=== PATIENT | female | born 1945 | race Caucasian/White ===

== ENCOUNTER → 2018-03-10 12:03 | Outpatient (CLI) | payer MEDICARE, OTHER, SELFPAY ==
[2018-03-10 12:08] LABS: Bacteria Urine None Seen
[2018-03-10 12:41] LABS: Appearance Urine UA CLOUDY; Bilirubin Urine UA NEGATIVE (NEGATIVE); Color Urine UA ORANGE; Glucose Urine UA TRACE g/dL (Normal); Ketones Urine UA TRACE (NEGATIVE); Leukocyte Esterase Urine UA 2+ (NEGATIVE); Nitrite Urine UA POSITIVE (Negative); Occult Blood Urine UA 3+ (Negative); Protein Urine UA 3+ (Negative); Specific Gravity Urine UA 1.015 (1.000-1.035)
[2018-03-10 13:40] LABS: Culture Indicated Urine Specimen Cultured; RBC Urine 10-30/HPF (0-5/HPF); WBC Urine 5-10/HPF (0-5/HPF)
== END ==
PROVIDERS: PCP Urology; Visit Provider Family Medicine
DX: R30.0 Dysuria (principal)
CPT/HCPCS: 81001; 87077; 87086; 87186

== ENCOUNTER → 2018-06-22 11:52 | Outpatient (CLI) | payer MEDICARE, OTHER, SELFPAY ==
[2018-06-22 12:56] LABS: Add Manual Diff / Slide Review NO; Basophils Percent Auto 0.7 % (0-2); Eosinophils Percent Auto 1.5 % (2-4); Hematocrit 37.3 % (36-46); Hemoglobin 12.4 g/dL (12.0-16.0); Lymphocytes Percent Auto 26.8 % (25-40); Mean Corpuscular HGB Conc 33.4 % (30-36); Mean Corpuscular Hemoglobin 31.7 PG (26-34); Monocytes Percent Auto 10.2 % (3-14); Neutrophils Absolute Auto 3100 /uL (3000-5900); Neutrophils Percent Auto 60.8 % (50-75); Platelet Count 238 X10^3/uL (150-400); Red Blood Cell Count 3.93 X10^6/uL (4.0-5.2); Red Cell Distribution Width 12.9 % (11.6-14.8); White Blood Cell Count 5.1 X10^3/uL (4.5-11.0)
[2018-06-22 13:02] LABS: Alanine Aminotransferase 33 IU/L (9-52); Albumin 4.6 g/dL (3.5-5.0); Alkaline Phosphatase 60 U/L (38-126); Aspartate Aminotransferase 47 IU/L (14-36); BUN Creatinine Ratio 15.7 (6-22); Bilirubin Total 0.7 mg/dL (0.2-1.3); Blood Urea Nitrogen 11 mg/dL (7-17); Calcium 9.1 mg/dL (8.4-10.2); Carbon Dioxide 30 mmol/L (22-32); Chloride 97 mmol/L (98-107); Cholesterol 155 mg/dL (140-199); Estimated Glomerular Filt Rate > 60.0 mL/min (>60); Globulin 2.3 g/dL (1.7-4.1); Glucose 96 mg/dL (80-110); HDL Cholesterol 62 mg/dL (40-60); HEMOLYSIS < 15 (0-50); LDL Cholesterol Calculated 79 mg/dL (<100); Potassium 3.8 mmol/L (3.4-5.1); Sodium 142 mmol/L (137-145); Total Protein 6.9 g/dL (6.3-8.2); Triglycerides 71 mg/dL (35-150)
[2018-06-22 13:32] LABS: Thyroid Stimulating Hormone 1.69 uIU/mL (0.47-4.68)
== END ==
PROVIDERS: PCP Urology; Visit Provider Family Medicine
DX: E78.5 Hyperlipidemia, unspecified (principal); I10 Essential (primary) hypertension; I47.1 Supraventricular tachycardia
CPT/HCPCS: 36415; 80053; 80061; 84443; 85025

== ENCOUNTER → 2018-06-27 16:31 | Outpatient (CLI) | payer MEDICARE, OTHER, SELFPAY | PROVIDERS: PCP Urology; Visit Provider Family Medicine | DX: Z12.11 Encounter for screening for malignant neoplasm of colon (principal) ==

== ENCOUNTER → 2018-07-17 12:36 | Outpatient (CLI) | payer MEDICARE, OTHER, SELFPAY | PROVIDERS: PCP Family Medicine; Visit Provider Family Medicine | DX: M81.0 Age-related osteoporosis without current pathological fracture (principal); Z78.0 Asymptomatic menopausal state; Z87.891 Personal history of nicotine dependence | CPT/HCPCS: 77080 ==

== ENCOUNTER → 2018-07-18 13:51 | Outpatient (CLI) | payer MEDICARE, OTHER, SELFPAY ==
[2018-07-20 18:22] LABS: Fecal Immunochemical Test NOT DETECTED
== END ==
PROVIDERS: PCP Family Medicine; Visit Provider Family Medicine
DX: E78.5 Hyperlipidemia, unspecified (principal); I10 Essential (primary) hypertension; I47.1 Supraventricular tachycardia
CPT/HCPCS: 82274

== ENCOUNTER → 2018-07-24 11:01 | Outpatient (CLI) | payer MEDICARE, OTHER, SELFPAY ==
--- NOTE | 2018-07-24 11:04 | DI.MG.S_ITS ---
BILATERAL DIGITAL SCREENING MAMMOGRAM 3D/2D WITH CAD: 07/24/2018 CLINICAL: Routine screening. Comparison is made to exams dated: 04/20/2010 mammogram - [facility], 07/03/2007 mammogram, and 09/01/2005 mammogram - [facility]. The tissue of both breasts is heterogeneously dense. This may lower the sensitivity of mammography. Current study was also evaluated with a Computer Aided Detection (CAD) system. No significant masses, calcifications, or other findings are seen in either breast. There has been no significant interval change. IMPRESSION: NEGATIVE There is no mammographic evidence of malignancy. A 1 year screening mammogram is recommended. This exam was interpreted at Station ID: [id number]. NOTE: For mammograms, a report in lay terms will be sent to the patient. Approximately 15% of breast malignancies will not be visualized mammographically. In the management of a palpable breast mass, a negative mammogram must not discourage biopsy of a clinically suspicious lesion. Electronically Signed By: Mazin ayala/trell:07/24/2018 12:14:21 letter sent: Normal Exam ACR BI-RADS Category 1: Negative [id number]
== END ==
PROVIDERS: PCP Family Medicine; Visit Provider Family Medicine
DX: Z12.31 Encounter for screening mammogram for malignant neoplasm of breast (principal)
CPT/HCPCS: 77063; 77067

== ENCOUNTER → 2019-01-23 15:24 | Outpatient (CLI) | payer MEDICARE, OTHER, SELFPAY ==
[2019-01-23 15:35] LABS: Bacteria Urine None Seen
[2019-01-23 15:45] LABS: Appearance Urine UA CLEAR; Bilirubin Urine UA NEGATIVE (NEGATIVE); Color Urine UA YELLOW; Glucose Urine UA NEGATIVE (Negative); Ketones Urine UA NEGATIVE (NEGATIVE); Leukocyte Esterase Urine UA TRACE (NEGATIVE); Nitrite Urine UA NEGATIVE (Negative); Occult Blood Urine UA 2+ (Negative); Protein Urine UA NEGATIVE (Negative); Specific Gravity Urine UA 1.015 (1.000-1.035); Urobilinogen Urine UA 0.2 E.U./dL (0.2); pH Urine UA 7.5 (4.5-8.0)
[2019-01-23 16:12] LABS: Amorphous Sediment Urine 1+; Culture Indicated Urine Specimen Cultured; RBC Urine 1-5/HPF (0-5/HPF); Squamous Epithelial Cell Urine 0-1 /HPF (0-5/HPF); WBC Urine 1-5/HPF (0-5/HPF)
== END ==
PROVIDERS: Family Provider Family Medicine; PCP Family Medicine; Visit Provider Family Medicine
DX: R30.0 Dysuria (principal)
CPT/HCPCS: 81001; 87077; 87086; 87186

== ENCOUNTER → 2019-02-05 14:23 | Outpatient (CLI) | payer MEDICARE, OTHER, SELFPAY ==
[2019-02-05 15:31] LABS: Appearance Urine UA CLEAR; Bilirubin Urine UA NEGATIVE (NEGATIVE); Color Urine UA YELLOW; Glucose Urine UA NEGATIVE (Negative); Ketones Urine UA NEGATIVE (NEGATIVE); Leukocyte Esterase Urine UA 3+ (NEGATIVE); Nitrite Urine UA NEGATIVE (Negative); Occult Blood Urine UA 2+ (Negative); Protein Urine UA NEGATIVE (Negative); Urobilinogen Urine UA 0.2 E.U./dL (0.2)
[2019-02-05 15:42] LABS: Amorphous Sediment Urine 1+; Bacteria Urine Moderate (10-30); Culture Indicated Urine Specimen Cultured; Mucus Urine 1+ (Negative); RBC Urine 1-5/HPF (0-5/HPF); Squamous Epithelial Cell Urine 0-1 /HPF (0-5/HPF); WBC Urine 30-100/HPF (0-5/HPF)
== END ==
PROVIDERS: Family Provider Family Medicine; PCP Family Medicine; Visit Provider Family Medicine
DX: R30.9 Painful micturition, unspecified (principal)
CPT/HCPCS: 81001; 87077; 87086; 87186

== ENCOUNTER → 2019-03-09 10:43 | Outpatient (CLI) | payer MEDICARE, OTHER, SELFPAY ==
[2019-03-09 11:07] LABS: Bacteria Urine None Seen
[2019-03-09 11:49] LABS: Appearance Urine UA CLOUDY; Bilirubin Urine UA 1+ (NEGATIVE); Color Urine UA Red; Glucose Urine UA NEGATIVE (Negative); Ictotest Urine Negative (Negative); Ketones Urine UA TRACE (NEGATIVE); Leukocyte Esterase Urine UA 2+ (NEGATIVE); Nitrite Urine UA NEGATIVE (Negative); Occult Blood Urine UA 3+ (Negative); Protein Urine UA 2+ (Negative); pH Urine UA 6.5 (4.5-8.0)
[2019-03-09 11:50] LABS: Culture Indicated Urine Specimen Cultured; RBC Urine >100/HPF (0-5/HPF); Squamous Epithelial Cell Urine 1-5 /HPF (0-5/HPF); WBC Urine >100/HPF (0-5/HPF)
== END ==
PROVIDERS: PCP Family Medicine; Visit Provider Family Medicine
DX: N39.0 Urinary tract infection, site not specified (principal)
CPT/HCPCS: 81001; 87077; 87086; 87186

== ENCOUNTER → 2019-03-25 14:38 | Outpatient (CLI) | payer MEDICARE, OTHER, SELFPAY ==
[2019-03-25 14:44] LABS: Bacteria Urine None Seen
[2019-03-25 14:56] LABS: Appearance Urine UA CLEAR; Bilirubin Urine UA NEGATIVE (NEGATIVE); Color Urine UA ORANGE; Glucose Urine UA TRACE g/dL (Negative); Ketones Urine UA NEGATIVE (NEGATIVE); Leukocyte Esterase Urine UA 1+ (NEGATIVE); Nitrite Urine UA POSITIVE (Negative); Occult Blood Urine UA 3+ (Negative); Protein Urine UA 1+ (Negative); pH Urine UA 7.5 (4.5-8.0)
[2019-03-25 15:11] LABS: Culture Indicated Urine Specimen Cultured; RBC Urine 5-10/HPF (0-5/HPF); WBC Urine 5-10/HPF (0-5/HPF)
== END ==
PROVIDERS: PCP Family Medicine; Visit Provider Family Medicine
DX: N39.0 Urinary tract infection, site not specified (principal); R30.0 Dysuria
CPT/HCPCS: 81001; 87086

== ENCOUNTER → 2019-04-19 15:28 | Outpatient (CLI) | payer MEDICARE, OTHER, SELFPAY ==
[2019-04-19 16:10] LABS: Sodium 138 mmol/L (137-145)
[2019-04-19 16:13] LABS: BUN Creatinine Ratio 26.7 (6-22); Blood Urea Nitrogen 16 mg/dL (7-17); Calcium 9.7 mg/dL (8.4-10.2); Carbon Dioxide 29 mmol/L (22-32); Chloride 97 mmol/L (98-107); Estimated Glomerular Filt Rate > 60.0 mL/min (>60); Glucose 78 mg/dL (80-110); HEMOLYSIS < 15 (0-50); Potassium 4.1 mmol/L (3.4-5.1)
[2019-04-19 16:52] LABS: Vitamin D 25 Hydroxy (D3) 53.8 ng/mL (30.0-100.0)
== END ==
PROVIDERS: PCP Family Medicine; Visit Provider Internal Medicine Endocrinology, Diabetes & Metabolism
DX: M81.0 Age-related osteoporosis without current pathological fracture (principal)
CPT/HCPCS: 36415; 80048; 82306

== ENCOUNTER → 2019-04-20 11:15 | Outpatient (CLI) | payer MEDICARE, OTHER, SELFPAY | PROVIDERS: PCP Family Medicine; Visit Provider Internal Medicine Endocrinology, Diabetes & Metabolism | DX: M81.0 Age-related osteoporosis without current pathological fracture (principal) | CPT/HCPCS: 82523; 82570 ==

== ENCOUNTER → 2019-07-26 15:27 | Outpatient (CLI) | payer MEDICARE, OTHER, SELFPAY ==
[2019-07-26 15:34] LABS: Bacteria Urine None Seen
[2019-07-26 16:13] LABS: Appearance Urine UA CLEAR; Bilirubin Urine UA NEGATIVE (NEGATIVE); Color Urine UA YELLOW; Glucose Urine UA NEGATIVE (Negative); Ketones Urine UA NEGATIVE (NEGATIVE); Leukocyte Esterase Urine UA 1+ (NEGATIVE); Nitrite Urine UA NEGATIVE (Negative); Occult Blood Urine UA 1+ (Negative); Protein Urine UA NEGATIVE (Negative); Urobilinogen Urine UA 0.2 E.U./dL (0.2)
[2019-07-26 16:24] LABS: RBC Urine 5-10/HPF (0-5/HPF); WBC Urine 5-10/HPF (0-5/HPF)
[2019-07-26 16:25] LABS: Culture Indicated Urine Specimen Cultured
== END ==
PROVIDERS: PCP Family Medicine; Visit Provider Family Medicine
DX: N39.0 Urinary tract infection, site not specified (principal)
CPT/HCPCS: 81001; 87077; 87086; 87186

== ENCOUNTER → 2019-09-16 14:58 | Outpatient (CLI) | payer MEDICARE, OTHER, SELFPAY ==
[2019-09-16 16:28] LABS: BUN Creatinine Ratio 22.9 (6-22); Blood Urea Nitrogen 16 mg/dL (7-17); Calcium 9.3 mg/dL (8.4-10.2); Carbon Dioxide 30 mmol/L (22-32); Chloride 97 mmol/L (98-107); Estimated Glomerular Filt Rate > 60.0 mL/min (>60); Glucose 85 mg/dL (80-110); HEMOLYSIS < 15 (0-50); Sodium 136 mmol/L (137-145)
[2019-09-16 17:15] LABS: Vitamin D 25 Hydroxy (D3) 36.3 ng/mL (30.0-100.0)
== END ==
PROVIDERS: Visit Provider Internal Medicine Endocrinology, Diabetes & Metabolism
DX: M81.0 Age-related osteoporosis without current pathological fracture (principal)
CPT/HCPCS: 80048; 82306; 82523; 82570

== ENCOUNTER → 2020-05-13 14:02 | Outpatient (CLI) | payer MEDICARE, OTHER, SELFPAY ==
--- NOTE | 2020-05-13 14:09 | DI.RAD.S_ITS ---
PROCEDURE: XR HAND LT MIN 3V INDICATIONS: hand pain TECHNIQUE: 3 views of the hand(s) acquired. COMPARISON: None. FINDINGS: Bones: No fractures or dislocations. Moderate to severe scattered IP and 1st CMC degenerative narrowing are present most severe in the DIP joints 3 through 5. Areas of periarticular sclerosis are present. Scattered minimal periarticular lucencies are noted. Soft tissues: No suspicious soft tissue calcifications. IMPRESSION: Prominent DIP and 1st CMC arthritic narrowing with subchondral lucencies. The latter are most likely suspicious for subchondral cyst. However, in appropriate clinical and laboratory sending, erosions cannot be excluded. Dictated by: Lovely Webster M.D. on 05/13/2020 at 16:25 Approved by: Lovely Webster M.D. on 05/13/2020 at 16:26
--- NOTE | 2020-05-13 14:09 | DI.RAD.S_ITS ---
PROCEDURE: XR HAND RT MIN 3V INDICATIONS: hand pain TECHNIQUE: 3 views of the hand(s) acquired. COMPARISON: None. FINDINGS: Bones: No fractures or dislocations. There is mild to moderate 1st CMC as well as moderate DIP IP degenerative narrowing. It is most significant in the 4th and 5th DIP joints. Scattered areas of periarticular subchondral lucency are present. Minimal periarticular osteophytes most notable at the 5th DIP joint. Soft tissues: No suspicious soft tissue calcifications. IMPRESSION: 1st CMC as well as DIP joint space narrowing as above most consistent with arthritis. Subchondral lucencies are present which suspected to represent cyst. However, in appropriate clinical and laboratory setting, erosions cannot be excluded. Dictated by: Lovely Webster M.D. on 05/13/2020 at 16:26 Approved by: Lovely Webster M.D. on 05/13/2020 at 16:27
[2020-05-13 14:43] LABS: Add Manual Diff / Slide Review NO; Basophils Absolute Auto 0 /uL (0-100); Basophils Percent Auto 0.7 % (0-2); Eosinophils Absolute Auto 0 /uL (0-450); Eosinophils Percent Auto 0.5 % (2-4); Hematocrit 35.1 % (36-46); Hemoglobin 11.8 g/dL (12.0-16.0); Lymphocytes Absolute Auto 1000 /uL (1100-4500); Lymphocytes Percent Auto 19.6 % (25-40); Mean Corpuscular HGB Conc 33.6 % (30-36); Mean Corpuscular Hemoglobin 31.8 PG (26-34); Mean Corpuscular Volume 94.5 fL (80-100); Monocytes Absolute Auto 400 /uL (0-900); Monocytes Percent Auto 8.3 % (3-14); Neutrophils Absolute Auto 3600 /uL (1500-7000); Neutrophils Percent Auto 70.9 % (50-75); Platelet Count 224 X10^3/uL (150-400); Red Blood Cell Count 3.71 X10^6/uL (4.0-5.2); Red Cell Distribution Width 12.7 % (11.6-14.8)
[2020-05-13 14:58] LABS: Alanine Aminotransferase 22 IU/L (<35); Albumin 4.6 g/dL (3.5-5.0); Albumin Globulin Ratio 1.7 (1.0-2.8); Alkaline Phosphatase 65 U/L (38-126); Aspartate Aminotransferase 40 IU/L (14-36); BUN Creatinine Ratio 24.3 (6-22); Bilirubin Total 0.7 mg/dL (0.2-1.3); Blood Urea Nitrogen 18 mg/dL (7-17); C-Reactive Protein Quant < 0.5 mg/dL (<1.0); Calcium 9.5 mg/dL (8.4-10.2); Carbon Dioxide 30 mmol/L (22-32); Chloride 100 mmol/L (98-107); Estimated Glomerular Filt Rate > 60.0 mL/min (>60); Globulin 2.7 g/dL (1.7-4.1); Glucose 143 mg/dL (80-110); HEMOLYSIS < 15 (0-50); Potassium 4.1 mmol/L (3.4-5.1); Sodium 139 mmol/L (137-145); Total Protein 7.3 g/dL (6.3-8.2)
[2020-05-13 15:00] LABS: Rheumatoid Factor < 8.6 IU/mL (<12.0)
== END ==
PROVIDERS: Referring Provider Family Medicine; Visit Provider Family Medicine
DX: M79.642 Pain in left hand (principal); I10 Essential (primary) hypertension
CPT/HCPCS: 36415; 73130; 80053; 85025; 86140; 86430

== ENCOUNTER → 2020-05-26 15:39 | Outpatient (CLI) | payer MEDICARE, OTHER, SELFPAY ==
--- NOTE | 2020-05-26 15:43 | DI.RAD.S_ITS ---
PROCEDURE: XR KNEE RT 3V INDICATIONS: right knee pain TECHNIQUE: 3 views of the knee were acquired. COMPARISON: None. FINDINGS: Bones: No fractures or dislocations. Mild tricompartmental osteoarthrosis. No suspicious bony lesions. Soft tissues: Small joint effusion. No suspicious soft tissue calcifications. IMPRESSION: Right knee without acute osseous abnormalities. Tricompartmental osteoarthrosis of the right knee with small joint effusion. Dictated by: Bill Beasley M.D. on 05/26/2020 at 17:22 Approved by: Bill Beasley M.D. on 05/26/2020 at 17:27
== END ==
PROVIDERS: Referring Provider Family Medicine; Visit Provider Family Medicine
DX: M25.561 Pain in right knee (principal); M17.11 Unilateral primary osteoarthritis, right knee; M25.461 Effusion, right knee
CPT/HCPCS: 73562

== ENCOUNTER → 2020-06-10 11:37 | Outpatient (CLI) | payer MEDICARE, OTHER, SELFPAY ==
[2020-06-10 12:43] LABS: Cholesterol 163 mg/dL (140-199); HDL Cholesterol 67 mg/dL (40-60); LDL Cholesterol Calculated 80 mg/dL (<100); Triglycerides 81 mg/dL (35-150)
== END ==
PROVIDERS: PCP Family Medicine; Referring Provider Internal Medicine Cardiovascular Disease; Visit Provider Internal Medicine Cardiovascular Disease
DX: E78.5 Hyperlipidemia, unspecified (principal)
CPT/HCPCS: 36415; 80061

== ENCOUNTER → 2020-07-21 12:41 | Outpatient (CLI) | payer MEDICARE, OTHER, SELFPAY | PROVIDERS: PCP Family Medicine; Referring Provider Family Medicine; Visit Provider Family Medicine | DX: M81.0 Age-related osteoporosis without current pathological fracture (principal); Z78.0 Asymptomatic menopausal state; Z87.891 Personal history of nicotine dependence | CPT/HCPCS: 77080 ==

== ENCOUNTER → 2020-08-24 14:46 | Outpatient (CLI) | payer MEDICARE, OTHER, SELFPAY ==
[2020-08-24 14:53] LABS: Bacteria Urine None Seen; RBC Urine None Seen (0-5/HPF); WBC Urine None Seen (0-5/HPF)
[2020-08-24 15:32] LABS: Appearance Urine UA CLEAR; Bilirubin Urine UA NEGATIVE (NEGATIVE); Color Urine UA YELLOW; Glucose Urine UA NEGATIVE (Negative); Ketones Urine UA NEGATIVE (NEGATIVE); Leukocyte Esterase Urine UA TRACE (NEGATIVE); Nitrite Urine UA NEGATIVE (Negative); Occult Blood Urine UA NEGATIVE (Negative); Protein Urine UA NEGATIVE (Negative); Specific Gravity Urine UA <=1.005 (1.000-1.035); Urobilinogen Urine UA 0.2 E.U./dL (0.2)
[2020-08-24 15:34] LABS: pH Urine UA 6.5 (4.5-8.0)
[2020-08-24 15:38] LABS: Culture Indicated Urine Cult Not Indicated; Urine Comments Microscopic Normal
== END ==
PROVIDERS: PCP Family Medicine; Referring Provider Family Medicine; Visit Provider Family Medicine
DX: R30.0 Dysuria (principal); R35.0 Frequency of micturition; R39.15 Urgency of urination
CPT/HCPCS: 81001

== ENCOUNTER 2020-09-15 13:00 | Outpatient (RCR) | payer MEDICARE, OTHER, SELFPAY ==
--- NOTE | 2020-07-07 14:13 | PT.OIE ---
Current Diagnoses Pain in unspecified knee (07/07/20) Past Medical History (Last Updated 06/01/20 @ 17:18 by Rubi Smart DO) Arthritis of both hands Chicken pox Essential hypertension Foot pain (~2014) Lichen sclerosus Melasma Osteopenia (~2009) Recurrent UTI Right wrist fracture SVT (supraventricular tachycardia) (~2010) Ureteral stricture Past Surgical History (Last Reviewed 06/01/20 @ 17:15 by Rubi Smart DO) Anesthesia History of urologic surgery Status post wrist surgery (~02/1995) Visit Care Team Role Provider Type Rubi Smart DO Attending Provider Physician Primary Care Provider Referring Provider Specialty: [facility] Address: [address] [place] [address], [facility] Email: [email or web address] Physical Therapy Initial Evaluation PT-OP-A Visit Information Start: 07/07/20 12:58 Freq: Status: Active Protocol: Document 07/07/20 13:49 HH (Rec: 07/07/20 14:12 [email or web address]) Out-Patient Physical Therapy Visit Information Visit Information Visit Type Initial Evaluation Visit Start Time 13:01 Visit Stop Time 13:45 Total Visit Minutes 44 Visit Number 09/08 Number of WIRE INSULATOR Visits 0 Evaluation Information Evaluation Date 07/07/20 PT-OP-B Current Condition Start: 07/07/20 12:58 Freq: Status: Active Protocol: Document 07/07/20 13:49 HH (Rec: 07/07/20 14:12 [email or web address]) Current Condition History of Current Condition Onset Date 1 year ago Current Complaints R knee pain, difficulty in walking and stair climbing History of Current Condition Pt is a 75yo female here for R knee pain, difficulty in walking and stair climbing. She was walking quickly across to the deck chasing a deer when she slipped and caught herself hard on her R leg but didnt fall. There was swelling but no bruising. Pain has been getting better but cont to have pain particularly when going down stairs. She feels like her knee will give out sometimes. She currently has to climb stairs with B rails with step to pattern only. Pt has not been able to cont her daily walking routine on treadmill 45mins/day. Her current routine is mostly gardening and short walks with her friends. Pt also stated she is very afraid of falling in general. Prior Treatments and Tests 05/26/20 X-ray IMPRESSION: Right knee without acute osseous abnormalities. 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 Treatment Goals Patient/Caregiver Goals 1. To regain her full ROM 2. To improve her balance 3. to be able to climb stairs witohut using handrails. PT-OP-C Subjective Start: 07/07/20 12:58 Freq: Status: Active Protocol: Document 07/07/20 13:49 HH (Rec: 07/07/20 14:12 HH [email or web address]) Patient Questionnaires Lower Extremity Functional Scale LEFS Score 34 LEFS Impairment 40 to 59% Impaired (Score 32- 47) OP-PT Pain Assessment Location knee cap Pain Location Details R knee cap (lateral boarder and center of patella) Scale Used 2-4 Description Aching,Pressure Frequency Frequent Pain Aggravating Factors Walking,Stair Climbing Pain Alleviating Factors Inactivity PT-OP-D Balance Start: 07/07/20 12:58 Freq: Status: Active Protocol: Document 07/07/20 13:49 HH (Rec: 07/07/20 14:12 [email or web address]) Balance Tests Single Limb Standing Single Limb- Right 5 Single Limb- Left 9 PT-OP-F Manual Assessment Start: 07/07/20 12:58 Freq: Status: Active Protocol: Document 07/07/20 13:49 HH (Rec: 07/07/20 14:12 [email or web address]) Manual Assessments Soft Tissue Assessment Soft Tissue Mobility Assessment painful to pressure at lateral border and center of R patella. Joint Mobility Assessment Joint Mobility Assessment decreased lateral and medial patella mobility on R side. PT-OP-G Mobility & Gait Start: 07/07/20 12:58 Freq: Status: Active Protocol: Document 07/07/20 13:49 HH (Rec: 07/07/20 14:12 HH [email or web address]) OP Gait Assessment Factors Limiting Gait Function Factors Limiting Gait Function Decreased Strength,Pain,Poor Balance Comments Gait Comments increased R knee valgus noted during stance phase on RLE Stair Climbing Evaluation Devices Stair Climbing Assistive Devices Left Railing,Right Railing Technique/Endurance Stair Climbing Direction Ascend and Descend Stair Climbing Technique Step to Step Number of Steps Climbed 4 Stair Climbing Set # Repetitions (reps) 2 Comments Stair Climbing Comments pt leads with LLE to ascend and descend. Increased pain noted with descend with eccentric knee flexion. PT-OP-K Range of Motion Start: 07/07/20 12:58 Freq: Status: Active Protocol: Document 07/07/20 13:49 HH (Rec: 07/07/20 14:12 HH [email or web address]) Knee Goniometric Range of Motion Knee Right Knee ROM WFL Yes Patient Position Supine Flexion Active (degrees) 157 Extension Active (degrees) 0 Comments pain R patella (lateral border ) at end range Left Knee ROM WFL Yes Patient Position Supine Flexion Active (degrees) 165 Extension Active (degrees) 0 Knee ROM Limitations Knee ROM Limitations Soft Tissue Tightness,Pain PT-OP-L Special Tests Start: 07/07/20 12:58 Freq: Status: Active Protocol: Document 07/07/20 13:49 HH (Rec: 07/07/20 14:12 [email or web address]) Special Tests Knee Special Tests MATI Test Results -ve B Apley's Compression Test Results -ve B Varus- 25 Degrees Test Results -ve B Varus- 0 Degrees Test Results -ve B Valgus- 25 Degrees Test Results -ve B Valgus- 0 Degrees Test Results -ve B PT-OP-M Strength Start: 07/07/20 12:58 Freq: Status: Active Protocol: Document 07/07/20 13:49 HH (Rec: 07/07/20 14:12 [email or web address]) Hip Strength Hip Manual Muscle Testing Right Flexion (L2) 3+ Fair+ Extension (S1) 4- Good- Abduction 3+ Fair+ Adduction 4- Good- Left Flexion (L2) 4+ Good+ Extension (S1) 4+ Good+ Abduction 4+ Good+ Adduction 4+ Good+ Knee Strength Knee Manual Muscle Testing Right Flexion (S2) 4 Good Extension (L3) 4- Good- Comments painful arc from knee flexion 30-0 degrees. Left Flexion (S2) 4+ Good+ Extension (L3) 4+ Good+ Ankle/Foot Strength Ankle and Foot Manual Muscle Testing Right Dorsiflexion (L4) 4 Good Plantarflexion (S1) 4 Good Inversion 4 Good Eversion (S1) 4+ Good+ Left Dorsiflexion (L4) 4+ Good+ Plantarflexion (S1) 4+ Good+ Inversion 4+ Good+ Eversion (S1) 4+ Good+ PT-OP-Q Treatments Start: 07/07/20 12:58 Freq: Status: Active Protocol: Document 07/07/20 13:49 HH (Rec: 07/07/20 14:12 [email or web address]) Manual Therapy Treatment Soft Tissue Mobilization lateral quad Body Location distal lateral quad Mobilization Type Sustained Pressure,Trigger Point Release Intensity/Depth Moderate Body Position Supine Joint Mobilizations patella mob Joint patellofemoral joint Direction lateral and medial mob Grade IV Body Position Supine Reps/Duration 5 mins PT-OP-T Assessment and Plan Start: 07/07/20 12:58 Freq: Status: Active Protocol: Document 07/07/20 13:49 (Rec: 07/07/20 14:12 [email or web address]) Physical Therapy Assessment Rehab Potential Rehabilitation Potential Excellent Evaluation Complexity Number of Personal Factors/Comorbidities 0 Number of Body Systems Impaired 1-2 Clinical Presentation at Evaluation Stable Impairments Impairments Activity Tolerance,Balance, Functional Activities, Functional Mobility,Gait,Pain, Posture,ROM,Soft Tissue Mobility,Strength Goals return to PLOF Impairment unable to participate TM daily walking for 45 mins Short Term Goal (STG) pt will be able to return to her TM for daily walking up to 20 mins, 4 times a week STG Duration 5 weeks Laundry Supervisor Goal (LTG) pt will be able to fully return to her TM for daily walking up to 45 mins, 5 times a week LTG Duration 10 weeks SLS Impairment R= 3s L= 8 s Short Term Goal (STG) pt will improve both improve single leg stability and strength to increase SLS by 5 seconds from baseline. STG Duration 5 weeks Laundry Supervisor Goal (LTG) pt will improve both improve single leg stability and strength to increase SLS by 10 seconds from baseline. LTG Duration 10 weeks stair climbing Impairment pt leads with LLE to ascend and descend d/t pain Short Term Goal (STG) pt will be able to complete stairs climbing with step over pattern with B rails support with min discomfort at R knee STG Duration 5 weeks Laundry Supervisor Goal (LTG) pt will be able to complete stairs climbing with step over pattern without use of handrails and no complaints of knee pain LTG Duration 10 weeks LEFS Impairment pt scores 34 for LEFS Short Term Goal (STG) Pt will score 45 on LEFS to improve her quality of life STG Duration 5 weeks Residential Goal (LTG) pt will score >60 on LEFS to improver her functional mobility and quality of life. LTG Duration 10 weeks Assessment Summary Assessment Pt is 75yo female here for her ongoing R knee pain, decreased balance and decreased LE strength. Upon assessment, pt presents R hip and R ankle weakness whose SLS is only 3 s. She also has limited patella lateral-medial mobility who has pain during resisted knee flexion and descending from stairs. Pt did feel better after patella mobilization and she will definitely benefit from skilled therapy to improve her patella mobility, single leg stability , strength and balance in order for her to return to her daily walking routine on treadmill 45mins/ day. Physical Therapy Plan Frequency and Duration Frequency of Treatment 2x/Week Duration of Treatment 10 weeks Plan of Care Start Date 07/07/20 Plan of Care End Date 09/20/20 Therapeutic Interventions Therapeutic Interventions Aquatic Therapy,Gait Training, Home Exercise Program,Joint Mobilizations,Manual Therapy, Neuromuscular Re-education, Patient/Caregiver Education, Self-Care/Home Management,Soft Tissue Mobilization,Taping, Therapeutic Activities, Therapeutic Exercises Modalities Biofeedback,Cold Pack/Ice Massage,Electric Stimulation, Hot Packs,Infrared Therapy, Traction- Mechanical, Ultrasound Next Visit Focus/Plan Next Note Type Treatment Note Next Visit Plan check patella mobility R hip sttrengthening ( clamshell, hip ext, ) SAQ, LAQ, HS curl SLS as aime
--- NOTE | 2020-07-07 14:16 | PT.OIE ---
Current Diagnoses Pain in unspecified knee (07/07/20) Past Medical History (Last Updated 06/01/20 @ 17:18 by Rubi Smart DO) Arthritis of both hands Chicken pox Essential hypertension Foot pain (~2014) Lichen sclerosus Melasma Osteopenia (~2009) Recurrent UTI Right wrist fracture SVT (supraventricular tachycardia) (~2010) Ureteral stricture Past Surgical History (Last Reviewed 06/01/20 @ 17:15 by Rubi Smart DO) Anesthesia History of urologic surgery Status post wrist surgery (~02/1995) Visit Care Team Role Provider Type Rubi Smart DO Attending Provider Physician Primary Care Provider Referring Provider Specialty: [facility] Address: [address] [place] [address], [facility] Email: [email or web address] Physical Therapy Initial Evaluation PT-OP-A Visit Information Start: 07/07/20 12:58 Freq: Status: Active Protocol: Document 07/07/20 13:49 HH (Rec: 07/07/20 14:12 [email or web address]) Out-Patient Physical Therapy Visit Information Visit Information Visit Type Initial Evaluation Visit Start Time 13:01 Visit Stop Time 13:45 Total Visit Minutes 44 Visit Number 09/08 Number of COUNTRY PRINTER APPRENTICE Visits 0 Evaluation Information Evaluation Date 07/07/20 PT-OP-B Current Condition Start: 07/07/20 12:58 Freq: Status: Active Protocol: Document 07/07/20 13:49 HH (Rec: 07/07/20 14:12 [email or web address]) Current Condition History of Current Condition Onset Date 1 year ago Current Complaints R knee pain, difficulty in walking and stair climbing History of Current Condition Pt is a 75yo female here for R knee pain, difficulty in walking and stair climbing. She was walking quickly across to the deck chasing a deer when she slipped and caught herself hard on her R leg but didnt fall. There was swelling but no bruising. Pain has been getting better but cont to have pain particularly when going down stairs. She feels like her knee will give out sometimes. She currently has to climb stairs with B rails with step to pattern only. Pt has not been able to cont her daily walking routine on treadmill 45mins/day. Her current routine is mostly gardening and short walks with her friends. Pt also stated she is very afraid of falling in general. Prior Treatments and Tests 05/26/20 X-ray IMPRESSION: Right knee without acute osseous abnormalities. 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 Treatment Goals Patient/Caregiver Goals 1. To regain her full ROM 2. To improve her balance 3. to be able to climb stairs witohut using handrails. PT-OP-C Subjective Start: 07/07/20 12:58 Freq: Status: Active Protocol: Document 07/07/20 13:49 HH (Rec: 07/07/20 14:12 HH [email or web address]) Patient Questionnaires Lower Extremity Functional Scale LEFS Score 34 LEFS Impairment 40 to 59% Impaired (Score 32- 47) OP-PT Pain Assessment Location knee cap Pain Location Details R knee cap (lateral boarder and center of patella) Scale Used 2-4 Description Aching,Pressure Frequency Frequent Pain Aggravating Factors Walking,Stair Climbing Pain Alleviating Factors Inactivity PT-OP-D Balance Start: 07/07/20 12:58 Freq: Status: Active Protocol: Document 07/07/20 13:49 HH (Rec: 07/07/20 14:12 [email or web address]) Balance Tests Single Limb Standing Single Limb- Right 5 Single Limb- Left 9 PT-OP-F Manual Assessment Start: 07/07/20 12:58 Freq: Status: Active Protocol: Document 07/07/20 13:49 HH (Rec: 07/07/20 14:12 [email or web address]) Manual Assessments Soft Tissue Assessment Soft Tissue Mobility Assessment painful to pressure at lateral border and center of R patella. Joint Mobility Assessment Joint Mobility Assessment decreased lateral and medial patella mobility on R side. PT-OP-G Mobility & Gait Start: 07/07/20 12:58 Freq: Status: Active Protocol: Document 07/07/20 13:49 HH (Rec: 07/07/20 14:12 HH [email or web address]) OP Gait Assessment Factors Limiting Gait Function Factors Limiting Gait Function Decreased Strength,Pain,Poor Balance Comments Gait Comments increased R knee valgus noted during stance phase on RLE Stair Climbing Evaluation Devices Stair Climbing Assistive Devices Left Railing,Right Railing Technique/Endurance Stair Climbing Direction Ascend and Descend Stair Climbing Technique Step to Step Number of Steps Climbed 4 Stair Climbing Set # Repetitions (reps) 2 Comments Stair Climbing Comments pt leads with LLE to ascend and descend. Increased pain noted with descend with eccentric knee flexion. PT-OP-K Range of Motion Start: 07/07/20 12:58 Freq: Status: Active Protocol: Document 07/07/20 13:49 HH (Rec: 07/07/20 14:12 HH [email or web address]) Knee Goniometric Range of Motion Knee Right Knee ROM WFL Yes Patient Position Supine Flexion Active (degrees) 157 Extension Active (degrees) 0 Comments pain R patella (lateral border ) at end range Left Knee ROM WFL Yes Patient Position Supine Flexion Active (degrees) 165 Extension Active (degrees) 0 Knee ROM Limitations Knee ROM Limitations Soft Tissue Tightness,Pain PT-OP-L Special Tests Start: 07/07/20 12:58 Freq: Status: Active Protocol: Document 07/07/20 13:49 HH (Rec: 07/07/20 14:12 [email or web address]) Special Tests Knee Special Tests MATI Test Results -ve B Apley's Compression Test Results -ve B Varus- 25 Degrees Test Results -ve B Varus- 0 Degrees Test Results -ve B Valgus- 25 Degrees Test Results -ve B Valgus- 0 Degrees Test Results -ve B PT-OP-M Strength Start: 07/07/20 12:58 Freq: Status: Active Protocol: Document 07/07/20 13:49 HH (Rec: 07/07/20 14:12 [email or web address]) Hip Strength Hip Manual Muscle Testing Right Flexion (L2) 3+ Fair+ Extension (S1) 4- Good- Abduction 3+ Fair+ Adduction 4- Good- Left Flexion (L2) 4+ Good+ Extension (S1) 4+ Good+ Abduction 4+ Good+ Adduction 4+ Good+ Knee Strength Knee Manual Muscle Testing Right Flexion (S2) 4 Good Extension (L3) 4- Good- Comments painful arc from knee flexion 30-0 degrees. Left Flexion (S2) 4+ Good+ Extension (L3) 4+ Good+ Ankle/Foot Strength Ankle and Foot Manual Muscle Testing Right Dorsiflexion (L4) 4 Good Plantarflexion (S1) 4 Good Inversion 4 Good Eversion (S1) 4+ Good+ Left Dorsiflexion (L4) 4+ Good+ Plantarflexion (S1) 4+ Good+ Inversion 4+ Good+ Eversion (S1) 4+ Good+ PT-OP-Q Treatments Start: 07/07/20 12:58 Freq: Status: Active Protocol: Document 07/07/20 13:49 HH (Rec: 07/07/20 14:12 [email or web address]) Manual Therapy Treatment Soft Tissue Mobilization lateral quad Body Location distal lateral quad Mobilization Type Sustained Pressure,Trigger Point Release Intensity/Depth Moderate Body Position Supine Joint Mobilizations patella mob Joint patellofemoral joint Direction lateral and medial mob Grade IV Body Position Supine Reps/Duration 5 mins PT-OP-T Assessment and Plan Start: 07/07/20 12:58 Freq: Status: Active Protocol: Document 07/07/20 13:49 (Rec: 07/07/20 14:12 [email or web address]) Physical Therapy Assessment Rehab Potential Rehabilitation Potential Excellent Evaluation Complexity Number of Personal Factors/Comorbidities 0 Number of Body Systems Impaired 1-2 Clinical Presentation at Evaluation Stable Impairments Impairments Activity Tolerance,Balance, Functional Activities, Functional Mobility,Gait,Pain, Posture,ROM,Soft Tissue Mobility,Strength Goals return to PLOF Impairment unable to participate TM daily walking for 45 mins Short Term Goal (STG) pt will be able to return to her TM for daily walking up to 20 mins, 4 times a week STG Duration 5 weeks Hide Shaker Goal (LTG) pt will be able to fully return to her TM for daily walking up to 45 mins, 5 times a week LTG Duration 10 weeks SLS Impairment R= 3s L= 8 s Short Term Goal (STG) pt will improve both improve single leg stability and strength to increase SLS by 5 seconds from baseline. STG Duration 5 weeks Hide Shaker Goal (LTG) pt will improve both improve single leg stability and strength to increase SLS by 10 seconds from baseline. LTG Duration 10 weeks stair climbing Impairment pt leads with LLE to ascend and descend d/t pain Short Term Goal (STG) pt will be able to complete stairs climbing with step over pattern with B rails support with min discomfort at R knee STG Duration 5 weeks Hide Shaker Goal (LTG) pt will be able to complete stairs climbing with step over pattern without use of handrails and no complaints of knee pain LTG Duration 10 weeks LEFS Impairment pt scores 34 for LEFS Short Term Goal (STG) Pt will score 45 on LEFS to improve her quality of life STG Duration 5 weeks Mcc Goal (LTG) pt will score >60 on LEFS to improver her functional mobility and quality of life. LTG Duration 10 weeks Assessment Summary Assessment Pt is 75yo female here for her ongoing R knee pain, decreased balance and decreased LE strength. Upon assessment, pt shows presentation of mild osteoarthritis symptoms with pain to pressure at lateral- center of R patella. Her R hip and R ankle weakness whose SLS is only 3 s. She also has limited patella lateral-medial mobility who has pain during resisted knee flexion and descending from stairs. Pt did feel better after patella mobilization and she will definitely benefit from skilled therapy to improve her patella mobility, single leg stability , strength and balance in order for her to return to her daily walking routine on treadmill 45mins/ day. Physical Therapy Plan Frequency and Duration Frequency of Treatment 2x/Week Duration of Treatment 10 weeks Plan of Care Start Date 07/07/20 Plan of Care End Date 09/20/20 Therapeutic Interventions Therapeutic Interventions Aquatic Therapy,Gait Training, Home Exercise Program,Joint Mobilizations,Manual Therapy, Neuromuscular Re-education, Patient/Caregiver Education, Self-Care/Home Management,Soft Tissue Mobilization,Taping, Therapeutic Activities, Therapeutic Exercises Modalities Biofeedback,Cold Pack/Ice Massage,Electric Stimulation, Hot Packs,Infrared Therapy, Traction- Mechanical, Ultrasound Next Visit Focus/Plan Next Note Type Treatment Note Next Visit Plan check patella mobility R hip sttrengthening ( clamshell, hip ext, ) SAQ, LAQ, HS curl SLS as aime
--- NOTE | 2020-07-07 14:16 | PT.OPPOC ---
Physical, Occupational & Speech Therapy At [facility] Current Diagnoses Pain in unspecified knee (07/07/20) Visit Care Team Role Provider Type Rubi Smart DO Attending Provider Physician Primary Care Provider Referring Provider Specialty: Family Practice Address: [address] [place] [address], [place], [address] Email: [email or web address] Plan Of Care PT-OP-T Assessment and Plan Start: 07/07/20 12:58 Freq: Status: Active Protocol: Document 07/07/20 13:49 HH (Rec: 07/07/20 14:12 HH [email or web address]) Physical Therapy Assessment Rehab Potential Rehabilitation Potential Excellent Evaluation Complexity Number of Personal Factors/Comorbidities 0 Number of Body Systems Impaired 1-2 Clinical Presentation at Evaluation Stable Impairments Impairments Activity Tolerance,Balance, Functional Activities, Functional Mobility,Gait,Pain, Posture,ROM,Soft Tissue Mobility,Strength Goals return to PLOF Impairment unable to participate TM daily walking for 45 mins Short Term Goal (STG) pt will be able to return to her TM for daily walking up to 20 mins, 4 times a week STG Duration 5 weeks Half-Way Goal (LTG) pt will be able to fully return to her TM for daily walking up to 45 mins, 5 times a week LTG Duration 10 weeks SLS Impairment R= 3s L= 8 s Short Term Goal (STG) pt will improve both improve single leg stability and strength to increase SLS by 5 seconds from baseline. STG Duration 5 weeks Optical Effects Line Up Person Goal (LTG) pt will improve both improve single leg stability and strength to increase SLS by 10 seconds from baseline. LTG Duration 10 weeks stair climbing Impairment pt leads with LLE to ascend and descend d/t pain Short Term Goal (STG) pt will be able to complete stairs climbing with step over pattern with B rails support with min discomfort at R knee STG Duration 5 weeks Half-Way Goal (LTG) pt will be able to complete stairs climbing with step over pattern without use of handrails and no complaints of knee pain LTG Duration 10 weeks LEFS Impairment pt scores 34 for LEFS Short Term Goal (STG) Pt will score 45 on LEFS to improve her quality of life STG Duration 5 weeks Half-Way Goal (LTG) pt will score >60 on LEFS to improver her functional mobility and quality of life. LTG Duration 10 weeks Assessment Summary Assessment Pt is 75yo female here for her ongoing R knee pain, decreased balance and decreased LE strength. Upon assessment, pt shows presentation of mild osteoarthritis symptoms with pain to pressure at lateral- center of R patella. Her R hip and R ankle weakness whose SLS is only 3 s. She also has limited patella lateral-medial mobility who has pain during resisted knee flexion and descending from stairs. Pt did feel better after patella mobilization and she will definitely benefit from skilled therapy to improve her patella mobility, single leg stability , strength and balance in order for her to return to her daily walking routine on treadmill 45mins/ day. Physical Therapy Plan Frequency and Duration Frequency of Treatment 2x/Week Duration of Treatment 10 weeks Plan of Care Start Date 07/07/20 Plan of Care End Date 09/20/20 Therapeutic Interventions Therapeutic Interventions Aquatic Therapy,Gait Training, Home Exercise Program,Joint Mobilizations,Manual Therapy, Neuromuscular Re-education, Patient/Caregiver Education, Self-Care/Home Management,Soft Tissue Mobilization,Taping, Therapeutic Activities, Therapeutic Exercises Modalities Biofeedback,Cold Pack/Ice Massage,Electric Stimulation, Hot Packs,Infrared Therapy, Traction- Mechanical, Ultrasound Next Visit Focus/Plan Next Note Type Treatment Note Next Visit Plan check patella mobility R hip sttrengthening ( clamshell, hip ext, ) SAQ, LAQ, HS curl SLS as aime Plan of Care Dates Plan of Care Start Date 07/07/20 Plan of Care End Date 09/20/20 Electronically Signed by: Ayden Howell, PT 07/07/20 2018 Please Sign and Return: I have reviewed this Plan of Care and certify that the skilled therapy services above are required to meet the patient?s needs. Physician Signature Date Printed Name and Credentials Clinical Instructor Signature Printed Name and Credentials
--- NOTE | 2020-07-09 14:35 | PT.OTN ---
Current Diagnoses Pain in unspecified knee (07/09/20) Physical Therapy Treatment Note PT-OP-A Visit Information Start: 07/07/20 12:58 Freq: Status: Active Protocol: Document 07/09/20 13:46 HH (Rec: 07/09/20 14:35 [email or web address]) Out-Patient Physical Therapy Visit Information Visit Information Visit Type Treatment Note Visit Start Time 13:46 Visit Stop Time 14:30 Total Visit Minutes 44 Visit Number 10/09 Number of ACCOUNTING SUPERVISOR Visits 0 PT-OP-B Current Condition Start: 07/07/20 12:58 Freq: Status: Active Protocol: Document 07/07/20 13:49 HH (Rec: 07/07/20 14:12 [email or web address]) Current Condition History of Current Condition Onset Date 1 year ago Current Complaints R knee pain, difficulty in walking and stair climbing History of Current Condition Pt is a 75yo female here for R knee pain, difficulty in walking and stair climbing. She was walking quickly across to the deck chasing a deer when she slipped and caught herself hard on her R leg but didnt fall. There was swelling but no bruising. Pain has been getting better but cont to have pain particularly when going down stairs. She feels like her knee will give out sometimes. She currently has to climb stairs with B rails with step to pattern only. Pt has not been able to cont her daily walking routine on treadmill 45mins/day. Her current routine is mostly gardening and short walks with her friends. Pt also stated she is very afraid of falling in general. Prior Treatments and Tests 05/26/20 X-ray IMPRESSION: Right knee without acute osseous abnormalities. 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 Treatment Goals Patient/Caregiver Goals 1. To regain her full ROM 2. To improve her balance 3. to be able to climb stairs witohut using handrails. PT-OP-C Subjective Start: 07/07/20 12:58 Freq: Status: Active Protocol: Document 07/09/20 13:46 HH (Rec: 07/09/20 14:35 [id number]) OP-PT Subjective Patient Comments Patient Comments Going up and down the stiars still bothers me. PT-OP-D Balance Start: 11/17/20 12:58 Freq: Status: Active Protocol: Document 07/07/20 13:49 HH (Rec: 07/07/20 14:12 [email or web address]) Balance Tests Single Limb Standing Single Limb- Right 5 Single Limb- Left 9 PT-OP-F Manual Assessment Start: 07/07/20 12:58 Freq: Status: Active Protocol: Document 07/07/20 13:49 HH (Rec: 07/07/20 14:12 [email or web address]) Manual Assessments Soft Tissue Assessment Soft Tissue Mobility Assessment painful to pressure at lateral border and center of R patella. Joint Mobility Assessment Joint Mobility Assessment decreased lateral and medial patella mobility on R side. PT-OP-G Mobility & Gait Start: 07/07/20 12:58 Freq: Status: Active Protocol: Document 07/07/20 13:49 HH (Rec: 07/07/20 14:12 [email or web address]) OP Gait Assessment Factors Limiting Gait Function Factors Limiting Gait Function Decreased Strength,Pain,Poor Balance Comments Gait Comments increased R knee valgus noted during stance phase on RLE Stair Climbing Evaluation Devices Stair Climbing Assistive Devices Left Railing,Right Railing Technique/Endurance Stair Climbing Direction Ascend and Descend Stair Climbing Technique Step to Step Number of Steps Climbed 4 Stair Climbing Set # Repetitions (reps) 2 Comments Stair Climbing Comments pt leads with LLE to ascend and descend. Increased pain noted with descend with eccentric knee flexion. PT-OP-K Range of Motion Start: 07/07/20 12:58 Freq: Status: Active Protocol: Document 07/07/20 13:49 HH (Rec: 07/07/20 14:12 [email or web address]) Knee Goniometric Range of Motion Knee Right Knee ROM WFL Yes Patient Position Supine Flexion Active (degrees) 157 Extension Active (degrees) 0 Comments pain R patella (lateral border ) at end range Left Knee ROM WFL Yes Patient Position Supine Flexion Active (degrees) 165 Extension Active (degrees) 0 Knee ROM Limitations Knee ROM Limitations Soft Tissue Tightness,Pain PT-OP-L Special Tests Start: 07/07/20 12:58 Freq: Status: Active Protocol: Document 07/07/20 13:49 HH (Rec: 07/07/20 14:12 [email or web address]) Special Tests Knee Special Tests MATI Test Results -ve B Apley's Compression Test Results -ve B Varus- 25 Degrees Test Results -ve B Varus- 0 Degrees Test Results -ve B Valgus- 25 Degrees Test Results -ve B Valgus- 0 Degrees Test Results -ve B PT-OP-M Strength Start: 07/07/20 12:58 Freq: Status: Active Protocol: Document 07/07/20 13:49 HH (Rec: 07/07/20 14:12 HH [email or web address]) Hip Strength Hip Manual Muscle Testing Right Flexion (L2) 3+ Fair+ Extension (S1) 4- Good- Abduction 3+ Fair+ Adduction 4- Good- Left Flexion (L2) 4+ Good+ Extension (S1) 4+ Good+ Abduction 4+ Good+ Adduction 4+ Good+ Knee Strength Knee Manual Muscle Testing Right Flexion (S2) 4 Good Extension (L3) 4- Good- Comments painful arc from knee flexion 30-0 degrees. Left Flexion (S2) 4+ Good+ Extension (L3) 4+ Good+ Ankle/Foot Strength Ankle and Foot Manual Muscle Testing Right Dorsiflexion (L4) 4 Good Plantarflexion (S1) 4 Good Inversion 4 Good Eversion (S1) 4+ Good+ Left Dorsiflexion (L4) 4+ Good+ Plantarflexion (S1) 4+ Good+ Inversion 4+ Good+ Eversion (S1) 4+ Good+ PT-OP-Q Treatments Start: 07/07/20 12:58 Freq: Status: Active Protocol: Document 07/09/20 13:46 HH (Rec: 07/09/20 14:35 HH [id number]) Gym Equipment Shuttle Recovery SL squat Resistance #37 for L, #25 for R Shuttle Recovery Platform Stable Reps/Time 10 x2 Therapeutic Exercises Supine Exercises SAQ Side bilateral Reps/Minutes 3 sec holds 5 reps x2 Sidelying Exercises clamshell Side bilateral Reps/Minutes 10 x2 Sitting Exercises LAQ Side bilateral Equipment Used green foam roller under knee Reps/Minutes 3 sec holds 5 reps x2 Comments HEP Standing Exercises quad stretch Reps/Minutes 15 sec x3 Comments HEP Manual Therapy Treatment Joint Mobilizations patella mob Joint patellofemoral joint Direction lateral and medial mob Grade IV Body Position Supine Reps/Duration 5 mins PT-OP-T Assessment and Plan Start: 07/07/20 12:58 Freq: Status: Active Protocol: Document 07/09/20 13:46 HH (Rec: 07/09/20 14:35 [id number]) Physical Therapy Assessment Goals return to PLOF Impairment unable to participate TM daily walking for 45 mins Short Term Goal (STG) pt will be able to return to her TM for daily walking up to 20 mins, 4 times a week STG Duration 5 weeks Fpc Goal (LTG) pt will be able to fully return to her TM for daily walking up to 45 mins, 5 times a week LTG Duration 10 weeks SLS Impairment R= 3s L= 8 s Short Term Goal (STG) pt will improve both improve single leg stability and strength to increase SLS by 5 seconds from baseline. STG Duration 5 weeks Fpc Goal (LTG) pt will improve both improve single leg stability and strength to increase SLS by 10 seconds from baseline. LTG Duration 10 weeks stair climbing Impairment pt leads with LLE to ascend and descend d/t pain Short Term Goal (STG) pt will be able to complete stairs climbing with step over pattern with B rails support with min discomfort at R knee STG Duration 5 weeks Fpc Goal (LTG) pt will be able to complete stairs climbing with step over pattern without use of handrails and no complaints of knee pain LTG Duration 10 weeks LEFS Impairment pt scores 34 for LEFS Short Term Goal (STG) Pt will score 45 on LEFS to improve her quality of life STG Duration 5 weeks Purifying Plant Operator Goal (LTG) pt will score >60 on LEFS to improver her functional mobility and quality of life. LTG Duration 10 weeks Assessment Summary Assessment Tx focused on patella mobility , quad strengthening, SL stability and SL strengthening . Pt was able to climb stairs with step over pattern immediately without pain at the end of session. Physical Therapy Plan Frequency and Duration Frequency of Treatment 2x/Week Duration of Treatment 10 weeks Plan of Care Start Date 07/07/20 Plan of Care End Date 09/20/20 Next Visit Focus/Plan Next Note Type Treatment Note Next Visit Plan check patella mobility R hip sttrengthening ( clamshell, hip ext, ) SAQ, LAQ, HS curl SLS as aime
--- NOTE | 2020-07-13 13:53 | PT.OTN ---
Current Diagnoses Pain in unspecified knee (07/13/20) Physical Therapy Treatment Note PT-OP-A Visit Information Start: 07/07/20 12:58 Freq: Status: Active Protocol: Document 07/13/20 13:02 (Rec: 07/13/20 13:52 [id number]) Out-Patient Physical Therapy Visit Information Visit Information Visit Type Treatment Note Visit Start Time 13:46 Visit Stop Time 14:30 Total Visit Minutes 44 Visit Number 10/09 Number of FILM CREW MEMBER Visits 0 PT-OP-B Current Condition Start: 07/07/20 12:58 Freq: Status: Active Protocol: Document 07/07/20 13:49 HH (Rec: 07/07/20 14:12 [email or web address]) Current Condition History of Current Condition Onset Date 1 year ago Current Complaints R knee pain, difficulty in walking and stair climbing History of Current Condition Pt is a 75yo female here for R knee pain, difficulty in walking and stair climbing. She was walking quickly across to the deck chasing a deer when she slipped and caught herself hard on her R leg but didnt fall. There was swelling but no bruising. Pain has been getting better but cont to have pain particularly when going down stairs. She feels like her knee will give out sometimes. She currently has to climb stairs with B rails with step to pattern only. Pt has not been able to cont her daily walking routine on treadmill 45mins/day. Her current routine is mostly gardening and short walks with her friends. Pt also stated she is very afraid of falling in general. Prior Treatments and Tests 05/26/20 X-ray IMPRESSION: Right knee without acute osseous abnormalities. 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 Treatment Goals Patient/Caregiver Goals 1. To regain her full ROM 2. To improve her balance 3. to be able to climb stairs witohut using handrails. PT-OP-C Subjective Start: 07/07/20 12:58 Freq: Status: Active Protocol: Document 07/13/20 13:02 (Rec: 07/13/20 13:52 [id number]) OP-PT Subjective Patient Comments Patient Comments I did get sore from doing exercises. But im not as fearful of doing stairs now. Patient Reported Progress Improving PT-OP-D Balance Start: 07/07/20 12:58 Freq: Status: Active Protocol: Document 07/07/20 13:49 HH (Rec: 07/07/20 14:12 [email or web address]) Balance Tests Single Limb Standing Single Limb- Right 5 Single Limb- Left 9 PT-OP-F Manual Assessment Start: 07/07/20 12:58 Freq: Status: Active Protocol: Document 07/07/20 13:49 HH (Rec: 07/07/20 14:12 [email or web address]) Manual Assessments Soft Tissue Assessment Soft Tissue Mobility Assessment painful to pressure at lateral border and center of R patella. Joint Mobility Assessment Joint Mobility Assessment decreased lateral and medial patella mobility on R side. PT-OP-G Mobility & Gait Start: 07/07/20 12:58 Freq: Status: Active Protocol: Document 07/07/20 13:49 HH (Rec: 07/07/20 14:12 [email or web address]) OP Gait Assessment Factors Limiting Gait Function Factors Limiting Gait Function Decreased Strength,Pain,Poor Balance Comments Gait Comments increased R knee valgus noted during stance phase on RLE Stair Climbing Evaluation Devices Stair Climbing Assistive Devices Left Railing,Right Railing Technique/Endurance Stair Climbing Direction Ascend and Descend Stair Climbing Technique Step to Step Number of Steps Climbed 4 Stair Climbing Set # Repetitions (reps) 2 Comments Stair Climbing Comments pt leads with LLE to ascend and descend. Increased pain noted with descend with eccentric knee flexion. PT-OP-K Range of Motion Start: 07/07/20 12:58 Freq: Status: Active Protocol: Document 07/07/20 13:49 HH (Rec: 07/07/20 14:12 [email or web address]) Knee Goniometric Range of Motion Knee Right Knee ROM WFL Yes Patient Position Supine Flexion Active (degrees) 157 Extension Active (degrees) 0 Comments pain R patella (lateral border ) at end range Left Knee ROM WFL Yes Patient Position Supine Flexion Active (degrees) 165 Extension Active (degrees) 0 Knee ROM Limitations Knee ROM Limitations Soft Tissue Tightness,Pain PT-OP-L Special Tests Start: 07/07/20 12:58 Freq: Status: Active Protocol: Document 07/07/20 13:49 HH (Rec: 07/07/20 14:12 [email or web address]) Special Tests Knee Special Tests MATI Test Results -ve B Apley's Compression Test Results -ve B Varus- 25 Degrees Test Results -ve B Varus- 0 Degrees Test Results -ve B Valgus- 25 Degrees Test Results -ve B Valgus- 0 Degrees Test Results -ve B PT-OP-M Strength Start: 07/07/20 12:58 Freq: Status: Active Protocol: Document 07/07/20 13:49 HH (Rec: 07/07/20 14:12 HH [email or web address]) Hip Strength Hip Manual Muscle Testing Right Flexion (L2) 3+ Fair+ Extension (S1) 4- Good- Abduction 3+ Fair+ Adduction 4- Good- Left Flexion (L2) 4+ Good+ Extension (S1) 4+ Good+ Abduction 4+ Good+ Adduction 4+ Good+ Knee Strength Knee Manual Muscle Testing Right Flexion (S2) 4 Good Extension (L3) 4- Good- Comments painful arc from knee flexion 30-0 degrees. Left Flexion (S2) 4+ Good+ Extension (L3) 4+ Good+ Ankle/Foot Strength Ankle and Foot Manual Muscle Testing Right Dorsiflexion (L4) 4 Good Plantarflexion (S1) 4 Good Inversion 4 Good Eversion (S1) 4+ Good+ Left Dorsiflexion (L4) 4+ Good+ Plantarflexion (S1) 4+ Good+ Inversion 4+ Good+ Eversion (S1) 4+ Good+ PT-OP-Q Treatments Start: 07/07/20 12:58 Freq: Status: Active Protocol: Document 07/13/20 13:02 HH (Rec: 07/13/20 13:52 HH [id number]) Cardio Equipment Bicycle (Upright) Duration (Minutes) 5 Resistance 5 Gym Equipment Shuttle Recovery SL squat Resistance #37 for L, #25 for R Shuttle Recovery Platform Stable Reps/Time 10 x2 Therapeutic Exercises Supine Exercises SAQ Side bilateral Reps/Minutes 3 sec holds 5 reps x2 Sidelying Exercises clamshell Side bilateral Reps/Minutes 10 x2 Sitting Exercises LAQ Side bilateral Equipment Used green foam roller under knee Reps/Minutes 3 sec holds 5 reps x2 Comments HEP Standing Exercises standing hip ER Side bilateral Equipment Used yellow band Reps/Minutes 8 x 2 quad stretch Reps/Minutes 15 sec x3 Comments HEP Manual Therapy Treatment Soft Tissue Mobilization lateral quad Body Location distal lateral quad Mobilization Type Sustained Pressure,Trigger Point Release Intensity/Depth Moderate Body Position Supine Joint Mobilizations patella mob Joint patellofemoral joint Direction lateral and medial mob Grade IV Body Position Supine Reps/Duration 5 mins Neuro Re-Education Treatment Balance Activities balance discs Surface blue and yellow discs Reps/Duration 6 mins Comments static, staggered w/o support 15 sec huge SLS Surface ground level Equipment next to grab bar Reps/Duration 5 sets 10-15 secs Comments able to hold 10-15s after balance discs 5 sets PT-OP-T Assessment and Plan Start: 07/07/20 12:58 Freq: Status: Active Protocol: Document 07/13/20 13:02 (Rec: 07/13/20 13:52 [id number]) Physical Therapy Assessment Goals return to PLOF Impairment unable to participate TM daily walking for 45 mins Short Term Goal (STG) pt will be able to return to her TM for daily walking up to 20 mins, 4 times a week STG Duration 5 weeks Software Tools Engineer Goal (LTG) pt will be able to fully return to her TM for daily walking up to 45 mins, 5 times a week LTG Duration 10 weeks SLS Impairment R= 3s L= 8 s Short Term Goal (STG) pt will improve both improve single leg stability and strength to increase SLS by 5 seconds from baseline. STG Duration 5 weeks Software Tools Engineer Goal (LTG) pt will improve both improve single leg stability and strength to increase SLS by 10 seconds from baseline. LTG Duration 10 weeks stair climbing Impairment pt leads with LLE to ascend and descend d/t pain Short Term Goal (STG) pt will be able to complete stairs climbing with step over pattern with B rails support with min discomfort at R knee STG Duration 5 weeks Intermediate Goal (LTG) pt will be able to complete stairs climbing with step over pattern without use of handrails and no complaints of knee pain LTG Duration 10 weeks LEFS Impairment pt scores 34 for LEFS Short Term Goal (STG) Pt will score 45 on LEFS to improve her quality of life STG Duration 5 weeks Software Tools Engineer Goal (LTG) pt will score >60 on LEFS to improver her functional mobility and quality of life. LTG Duration 10 weeks Assessment Summary Assessment Pt aime session very well. min discomfort for stair climbing now with step over pattern. Cont focus on SL strengthening and stability with knee extension based ex. Physical Therapy Plan Frequency and Duration Frequency of Treatment 2x/Week Duration of Treatment 10 weeks Plan of Care Start Date 07/07/20 Plan of Care End Date 09/20/20 Next Visit Focus/Plan Next Note Type Treatment Note Next Visit Plan patella mobility R hip sttrengthening ( clamshell, hip ext, ) SAQ, LAQ, HS curl SLS as aime uneven surface balance trianing
--- NOTE | 2020-07-15 12:14 | PT.OTN ---
Current Diagnoses Pain in unspecified knee (07/15/20) Physical Therapy Treatment Note PT-OP-A Visit Information Start: 07/07/20 12:58 Freq: Status: Active Protocol: Document 07/15/20 10:49 [facility] (Rec: 07/15/20 12:14 [facility] [id number]) Out-Patient Physical Therapy Visit Information Visit Information Visit Type Treatment Note Visit Start Time 11:21 Visit Stop Time 12:02 Total Visit Minutes 41 Visit Number 11/06 Number of CANVASS MANAGER Visits 0 PT-OP-B Current Condition Start: 07/07/20 12:58 Freq: Status: Active Protocol: Document 07/07/20 13:49 HH (Rec: 07/07/20 14:12 HH [email or web address]) Current Condition History of Current Condition Onset Date 1 year ago Current Complaints R knee pain, difficulty in walking and stair climbing History of Current Condition Pt is a 75yo female here for R knee pain, difficulty in walking and stair climbing. She was walking quickly across to the deck chasing a deer when she slipped and caught herself hard on her R leg but didnt fall. There was swelling but no bruising. Pain has been getting better but cont to have pain particularly when going down stairs. She feels like her knee will give out sometimes. She currently has to climb stairs with B rails with step to pattern only. Pt has not been able to cont her daily walking routine on treadmill 45mins/day. Her current routine is mostly gardening and short walks with her friends. Pt also stated she is very afraid of falling in general. Prior Treatments and Tests 05/26/20 X-ray IMPRESSION: Right knee without acute osseous abnormalities. 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 Treatment Goals Patient/Caregiver Goals 1. To regain her full ROM 2. To improve her balance 3. to be able to climb stairs witohut using handrails. PT-OP-C Subjective Start: 07/07/20 12:58 Freq: Status: Active Protocol: Document 07/15/20 10:49 [facility] (Rec: 07/15/20 12:14 [facility] [id number]) OP-PT Subjective Patient Comments Patient Comments Pt reports she wants to focus on stairs and balance & have something to help the L side of her back that also hurts Patient Reported Progress Improving PT-OP-D Balance Start: 07/07/20 12:58 Freq: Status: Active Protocol: Document 07/07/20 13:49 HH (Rec: 07/07/20 14:12 HH [email or web address]) Balance Tests Single Limb Standing Single Limb- Right 5 Single Limb- Left 9 PT-OP-F Manual Assessment Start: 07/07/20 12:58 Freq: Status: Active Protocol: Document 07/07/20 13:49 HH (Rec: 07/07/20 14:12 HH [email or web address]) Manual Assessments Soft Tissue Assessment Soft Tissue Mobility Assessment painful to pressure at lateral border and center of R patella. Joint Mobility Assessment Joint Mobility Assessment decreased lateral and medial patella mobility on R side. PT-OP-G Mobility & Gait Start: 07/07/20 12:58 Freq: Status: Active Protocol: Document 07/07/20 13:49 HH (Rec: 07/07/20 14:12 [email or web address]) OP Gait Assessment Factors Limiting Gait Function Factors Limiting Gait Function Decreased Strength,Pain,Poor Balance Comments Gait Comments increased R knee valgus noted during stance phase on RLE Stair Climbing Evaluation Devices Stair Climbing Assistive Devices Left Railing,Right Railing Technique/Endurance Stair Climbing Direction Ascend and Descend Stair Climbing Technique Step to Step Number of Steps Climbed 4 Stair Climbing Set # Repetitions (reps) 2 Comments Stair Climbing Comments pt leads with LLE to ascend and descend. Increased pain noted with descend with eccentric knee flexion. PT-OP-K Range of Motion Start: 07/07/20 12:58 Freq: Status: Active Protocol: Document 07/07/20 13:49 HH (Rec: 07/07/20 14:12 [email or web address]) Knee Goniometric Range of Motion Knee Right Knee ROM WFL Yes Patient Position Supine Flexion Active (degrees) 157 Extension Active (degrees) 0 Comments pain R patella (lateral border ) at end range Left Knee ROM WFL Yes Patient Position Supine Flexion Active (degrees) 165 Extension Active (degrees) 0 Knee ROM Limitations Knee ROM Limitations Soft Tissue Tightness,Pain PT-OP-L Special Tests Start: 07/07/20 12:58 Freq: Status: Active Protocol: Document 07/07/20 13:49 HH (Rec: 07/07/20 14:12 HH [email or web address]) Special Tests Knee Special Tests MATI Test Results -ve B Apley's Compression Test Results -ve B Varus- 25 Degrees Test Results -ve B Varus- 0 Degrees Test Results -ve B Valgus- 25 Degrees Test Results -ve B Valgus- 0 Degrees Test Results -ve B PT-OP-M Strength Start: 07/07/20 12:58 Freq: Status: Active Protocol: Document 07/07/20 13:49 (Rec: 07/07/20 14:12 [email or web address]) Hip Strength Hip Manual Muscle Testing Right Flexion (L2) 3+ Fair+ Extension (S1) 4- Good- Abduction 3+ Fair+ Adduction 4- Good- Left Flexion (L2) 4+ Good+ Extension (S1) 4+ Good+ Abduction 4+ Good+ Adduction 4+ Good+ Knee Strength Knee Manual Muscle Testing Right Flexion (S2) 4 Good Extension (L3) 4- Good- Comments painful arc from knee flexion 30-0 degrees. Left Flexion (S2) 4+ Good+ Extension (L3) 4+ Good+ Ankle/Foot Strength Ankle and Foot Manual Muscle Testing Right Dorsiflexion (L4) 4 Good Plantarflexion (S1) 4 Good Inversion 4 Good Eversion (S1) 4+ Good+ Left Dorsiflexion (L4) 4+ Good+ Plantarflexion (S1) 4+ Good+ Inversion 4+ Good+ Eversion (S1) 4+ Good+ PT-OP-Q Treatments Start: 07/07/20 12:58 Freq: Status: Active Protocol: Document 07/15/20 10:49 [facility] (Rec: 07/15/20 12:14 [facility] [id number]) Cardio Equipment Bicycle (Upright) Duration (Minutes) 5 Resistance 5 Seat Position 5 Gym Equipment Shuttle Balance red clips Comments fwd & side: WBOS & NBOS fwd: staggered stance Therapeutic Exercises Supine Exercises core Supine Exercise Name supine hip flex press w/UE core activation Side bilateral Reps/Minutes 30 sec Sitting Exercises stretch Sitting Exercise Name L QL Reps/Minutes 30 sec Gait Training Gait Activity stairs Comments up and down 6 in step reciprocally w/rail x2 step ups with focus on wt shift to RLE and appropriate knee position x10 on 4 in step Manual Therapy Treatment Soft Tissue Mobilization lateral quad Body Location distal lateral quad Mobilization Type Sustained Pressure,Trigger Point Release Intensity/Depth Moderate Body Position Supine Joint Mobilizations tibfem Joint R Direction PA patella mob Joint patellofemoral joint Direction sup/inf and medial mob Grade IV Body Position Supine Neuro Re-Education Treatment Balance Activities balance discs Surface blue and yellow discs Comments NBOS on 1 and WBOS on 2, staggered w/o support SLS Surface ground level Equipment next to grab bar Reps/Duration mult attempts PT-OP-T Assessment and Plan Start: 07/07/20 12:58 Freq: Status: Active Protocol: Document 07/15/20 10:49 [facility] (Rec: 07/15/20 12:14 [facility] [id number]) Physical Therapy Assessment Goals return to PLOF Impairment unable to participate TM daily walking for 45 mins Short Term Goal (STG) pt will be able to return to her TM for daily walking up to 20 mins, 4 times a week STG Duration 5 weeks Technical Fellow Goal (LTG) pt will be able to fully return to her TM for daily walking up to 45 mins, 5 times a week LTG Duration 10 weeks SLS Impairment R= 3s L= 8 s Short Term Goal (STG) pt will improve both improve single leg stability and strength to increase SLS by 5 seconds from baseline. STG Duration 5 weeks Skilled Nursing Goal (LTG) pt will improve both improve single leg stability and strength to increase SLS by 10 seconds from baseline. LTG Duration 10 weeks stair climbing Impairment pt leads with LLE to ascend and descend d/t pain Short Term Goal (STG) pt will be able to complete stairs climbing with step over pattern with B rails support with min discomfort at R knee STG Duration 5 weeks Skilled Nursing Goal (LTG) pt will be able to complete stairs climbing with step over pattern without use of handrails and no complaints of knee pain LTG Duration 10 weeks LEFS Impairment pt scores 34 for LEFS Short Term Goal (STG) Pt will score 45 on LEFS to improve her quality of life STG Duration 5 weeks Skilled Nursing Goal (LTG) pt will score >60 on LEFS to improver her functional mobility and quality of life. LTG Duration 10 weeks Assessment Summary Assessment Pt did well with stairs and educated on knee positioning with stepping up. She overall did well with balance exercises but NBOS positioning on uneven surfaces Physical Therapy Plan Frequency and Duration Frequency of Treatment 2x/Week Duration of Treatment 10 weeks Plan of Care Start Date 07/07/20 Plan of Care End Date 09/20/20 Next Visit Focus/Plan Next Note Type Treatment Note Next Visit Plan patella mobility R hip sttrengthening ( clamshell, hip ext, ) SAQ, LAQ, HS curl SLS as aime uneven surface balance trianing
--- NOTE | 2020-07-20 15:16 | PT.OTN ---
Current Diagnoses Pain in unspecified knee (07/20/20) Physical Therapy Treatment Note PT-OP-A Visit Information Start: 07/07/20 12:58 Freq: Status: Active Protocol: Document 07/20/20 14:33 HH (Rec: 07/20/20 15:16 [id number]) Out-Patient Physical Therapy Visit Information Visit Information Visit Type Treatment Note Visit Start Time 14:33 Visit Stop Time 15:15 Total Visit Minutes 42 Visit Number 12/07 Number of EXERCISE TEACHER Visits 0 PT-OP-B Current Condition Start: 07/07/20 12:58 Freq: Status: Active Protocol: Document 07/07/20 13:49 HH (Rec: 07/07/20 14:12 HH [email or web address]) Current Condition History of Current Condition Onset Date 1 year ago Current Complaints R knee pain, difficulty in walking and stair climbing History of Current Condition Pt is a 75yo female here for R knee pain, difficulty in walking and stair climbing. She was walking quickly across to the deck chasing a deer when she slipped and caught herself hard on her R leg but didnt fall. There was swelling but no bruising. Pain has been getting better but cont to have pain particularly when going down stairs. She feels like her knee will give out sometimes. She currently has to climb stairs with B rails with step to pattern only. Pt has not been able to cont her daily walking routine on treadmill 45mins/day. Her current routine is mostly gardening and short walks with her friends. Pt also stated she is very afraid of falling in general. Prior Treatments and Tests 05/26/20 X-ray IMPRESSION: Right knee without acute osseous abnormalities. 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 Treatment Goals Patient/Caregiver Goals 1. To regain her full ROM 2. To improve her balance 3. to be able to climb stairs witohut using handrails. PT-OP-C Subjective Start: 07/07/20 12:58 Freq: Status: Active Protocol: Document 07/20/20 14:33 HH (Rec: 07/20/20 15:16 HH [id number]) OP-PT Subjective Patient Comments Patient Comments Zaria been walking more and stair has been getting better. Patient Reported Progress Improving PT-OP-D Balance Start: 07/07/20 12:58 Freq: Status: Active Protocol: Document 07/07/20 13:49 HH (Rec: 07/07/20 14:12 [email or web address]) Balance Tests Single Limb Standing Single Limb- Right 5 Single Limb- Left 9 PT-OP-F Manual Assessment Start: 07/07/20 12:58 Freq: Status: Active Protocol: Document 07/07/20 13:49 HH (Rec: 07/07/20 14:12 [email or web address]) Manual Assessments Soft Tissue Assessment Soft Tissue Mobility Assessment painful to pressure at lateral border and center of R patella. Joint Mobility Assessment Joint Mobility Assessment decreased lateral and medial patella mobility on R side. PT-OP-G Mobility & Gait Start: 07/07/20 12:58 Freq: Status: Active Protocol: Document 07/07/20 13:49 HH (Rec: 07/07/20 14:12 [email or web address]) OP Gait Assessment Factors Limiting Gait Function Factors Limiting Gait Function Decreased Strength,Pain,Poor Balance Comments Gait Comments increased R knee valgus noted during stance phase on RLE Stair Climbing Evaluation Devices Stair Climbing Assistive Devices Left Railing,Right Railing Technique/Endurance Stair Climbing Direction Ascend and Descend Stair Climbing Technique Step to Step Number of Steps Climbed 4 Stair Climbing Set # Repetitions (reps) 2 Comments Stair Climbing Comments pt leads with LLE to ascend and descend. Increased pain noted with descend with eccentric knee flexion. PT-OP-K Range of Motion Start: 07/07/20 12:58 Freq: Status: Active Protocol: Document 07/07/20 13:49 HH (Rec: 07/07/20 14:12 [email or web address]) Knee Goniometric Range of Motion Knee Right Knee ROM WFL Yes Patient Position Supine Flexion Active (degrees) 157 Extension Active (degrees) 0 Comments pain R patella (lateral border ) at end range Left Knee ROM WFL Yes Patient Position Supine Flexion Active (degrees) 165 Extension Active (degrees) 0 Knee ROM Limitations Knee ROM Limitations Soft Tissue Tightness,Pain PT-OP-L Special Tests Start: 07/07/20 12:58 Freq: Status: Active Protocol: Document 07/07/20 13:49 HH (Rec: 07/07/20 14:12 [email or web address]) Special Tests Knee Special Tests MATI Test Results -ve B Apley's Compression Test Results -ve B Varus- 25 Degrees Test Results -ve B Varus- 0 Degrees Test Results -ve B Valgus- 25 Degrees Test Results -ve B Valgus- 0 Degrees Test Results -ve B PT-OP-M Strength Start: 07/07/20 12:58 Freq: Status: Active Protocol: Document 07/07/20 13:49 HH (Rec: 07/07/20 14:12 HH [email or web address]) Hip Strength Hip Manual Muscle Testing Right Flexion (L2) 3+ Fair+ Extension (S1) 4- Good- Abduction 3+ Fair+ Adduction 4- Good- Left Flexion (L2) 4+ Good+ Extension (S1) 4+ Good+ Abduction 4+ Good+ Adduction 4+ Good+ Knee Strength Knee Manual Muscle Testing Right Flexion (S2) 4 Good Extension (L3) 4- Good- Comments painful arc from knee flexion 30-0 degrees. Left Flexion (S2) 4+ Good+ Extension (L3) 4+ Good+ Ankle/Foot Strength Ankle and Foot Manual Muscle Testing Right Dorsiflexion (L4) 4 Good Plantarflexion (S1) 4 Good Inversion 4 Good Eversion (S1) 4+ Good+ Left Dorsiflexion (L4) 4+ Good+ Plantarflexion (S1) 4+ Good+ Inversion 4+ Good+ Eversion (S1) 4+ Good+ PT-OP-Q Treatments Start: 07/07/20 12:58 Freq: Status: Active Protocol: Document 07/20/20 14:33 HH (Rec: 07/20/20 15:16 HH [id number]) Cardio Equipment Bicycle (Upright) Duration (Minutes) 5 Resistance 5 Seat Position 5 Gym Equipment Shuttle Recovery SL squat Resistance #37 for L, #25 for R 1st set then 2nd set Shuttle Recovery Platform Stable Reps/Time 10 x2, slight pain at R knee cap for 37 lbs Therapeutic Exercises Supine Exercises SAQ Side bilateral Reps/Minutes 3 sec holds 8 reps x2 Prone Exercises prone hip ER Prone Exercise Name R passive ER Side right Reps/Minutes 8 sec x 5 Sidelying Exercises clamshell Side bilateral Reps/Minutes 10 x2 Standing Exercises SLS Side bilateral Reps/Minutes 8 sec each x 5 each side step up Side bilateral Equipment Used 6 step Reps/Minutes 8 x2 Comments with UE support standing hip ER Side bilateral Equipment Used yellow band Reps/Minutes 8 x 2 PT-OP-T Assessment and Plan Start: 07/07/20 12:58 Freq: Status: Active Protocol: Document 07/20/20 14:33 HH (Rec: 07/20/20 15:16 [id number]) Physical Therapy Assessment Goals return to PLOF Impairment unable to participate TM daily walking for 45 mins Short Term Goal (STG) pt will be able to return to her TM for daily walking up to 20 mins, 4 times a week STG Duration 5 weeks Chemical Treatment Operator Goal (LTG) pt will be able to fully return to her TM for daily walking up to 45 mins, 5 times a week LTG Duration 10 weeks SLS Impairment R= 3s L= 8 s Short Term Goal (STG) pt will improve both improve single leg stability and strength to increase SLS by 5 seconds from baseline. STG Duration 5 weeks Longterm Goal (LTG) pt will improve both improve single leg stability and strength to increase SLS by 10 seconds from baseline. LTG Duration 10 weeks stair climbing Impairment pt leads with LLE to ascend and descend d/t pain Short Term Goal (STG) pt will be able to complete stairs climbing with step over pattern with B rails support with min discomfort at R knee STG Duration 5 weeks Chemical Treatment Operator Goal (LTG) pt will be able to complete stairs climbing with step over pattern without use of handrails and no complaints of knee pain LTG Duration 10 weeks LEFS Impairment pt scores 34 for LEFS Short Term Goal (STG) Pt will score 45 on LEFS to improve her quality of life STG Duration 5 weeks Chemical Treatment Operator Goal (LTG) pt will score >60 on LEFS to improver her functional mobility and quality of life. LTG Duration 10 weeks Assessment Summary Assessment Pt has been using step over pattern with 1UE support for stair climbing. She does has discomfort for ascend but not descend. Will cont focus on SL strength and balance. Physical Therapy Plan Frequency and Duration Frequency of Treatment 2x/Week Duration of Treatment 10 weeks Plan of Care Start Date 07/07/20 Plan of Care End Date 09/20/20 Next Visit Focus/Plan Next Note Type Treatment Note Next Visit Plan patella mobility R hip sttrengthening ( clamshell, hip ext, ) SAQ, LAQ, HS curl SLS as aime uneven surface balance trianing
--- NOTE | 2020-07-23 15:20 | PT.OTN ---
Current Diagnoses Pain in unspecified knee (07/23/20) Physical Therapy Treatment Note PT-OP-A Visit Information Start: 07/07/20 12:58 Freq: Status: Active Protocol: Document 07/23/20 14:31 HH (Rec: 07/23/20 15:20 [id number]) Out-Patient Physical Therapy Visit Information Visit Information Visit Type Treatment Note Visit Start Time 14:35 Visit Stop Time 15:16 Total Visit Minutes 41 Visit Number 01/06 Number of BARREL LOADER Visits 0 PT-OP-B Current Condition Start: 07/07/20 12:58 Freq: Status: Active Protocol: Document 07/07/20 13:49 HH (Rec: 07/07/20 14:12 HH [email or web address]) Current Condition History of Current Condition Onset Date 1 year ago Current Complaints R knee pain, difficulty in walking and stair climbing History of Current Condition Pt is a 75yo female here for R knee pain, difficulty in walking and stair climbing. She was walking quickly across to the deck chasing a deer when she slipped and caught herself hard on her R leg but didnt fall. There was swelling but no bruising. Pain has been getting better but cont to have pain particularly when going down stairs. She feels like her knee will give out sometimes. She currently has to climb stairs with B rails with step to pattern only. Pt has not been able to cont her daily walking routine on treadmill 45mins/day. Her current routine is mostly gardening and short walks with her friends. Pt also stated she is very afraid of falling in general. Prior Treatments and Tests 05/26/20 X-ray IMPRESSION: Right knee without acute osseous abnormalities. 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 Treatment Goals Patient/Caregiver Goals 1. To regain her full ROM 2. To improve her balance 3. to be able to climb stairs witohut using handrails. PT-OP-C Subjective Start: 07/07/20 12:58 Freq: Status: Active Protocol: Document 07/23/20 14:31 HH (Rec: 07/23/20 15:20 [id number]) OP-PT Subjective Patient Comments Patient Comments I tried the treadmill yesterday for 15 mins. And it went very well without increased discomfort. It was somewhere 2.4 for speed. Patient Reported Progress Improving PT-OP-D Balance Start: 07/07/20 12:58 Freq: Status: Active Protocol: Document 07/07/20 13:49 HH (Rec: 07/07/20 14:12 [email or web address]) Balance Tests Single Limb Standing Single Limb- Right 5 Single Limb- Left 9 PT-OP-F Manual Assessment Start: 07/07/20 12:58 Freq: Status: Active Protocol: Document 07/07/20 13:49 HH (Rec: 07/07/20 14:12 HH [email or web address]) Manual Assessments Soft Tissue Assessment Soft Tissue Mobility Assessment painful to pressure at lateral border and center of R patella. Joint Mobility Assessment Joint Mobility Assessment decreased lateral and medial patella mobility on R side. PT-OP-G Mobility & Gait Start: 07/07/20 12:58 Freq: Status: Active Protocol: Document 07/07/20 13:49 HH (Rec: 07/07/20 14:12 [email or web address]) OP Gait Assessment Factors Limiting Gait Function Factors Limiting Gait Function Decreased Strength,Pain,Poor Balance Comments Gait Comments increased R knee valgus noted during stance phase on RLE Stair Climbing Evaluation Devices Stair Climbing Assistive Devices Left Railing,Right Railing Technique/Endurance Stair Climbing Direction Ascend and Descend Stair Climbing Technique Step to Step Number of Steps Climbed 4 Stair Climbing Set # Repetitions (reps) 2 Comments Stair Climbing Comments pt leads with LLE to ascend and descend. Increased pain noted with descend with eccentric knee flexion. PT-OP-K Range of Motion Start: 07/07/20 12:58 Freq: Status: Active Protocol: Document 07/07/20 13:49 HH (Rec: 07/07/20 14:12 [email or web address]) Knee Goniometric Range of Motion Knee Right Knee ROM WFL Yes Patient Position Supine Flexion Active (degrees) 157 Extension Active (degrees) 0 Comments pain R patella (lateral border ) at end range Left Knee ROM WFL Yes Patient Position Supine Flexion Active (degrees) 165 Extension Active (degrees) 0 Knee ROM Limitations Knee ROM Limitations Soft Tissue Tightness,Pain PT-OP-L Special Tests Start: 07/07/20 12:58 Freq: Status: Active Protocol: Document 07/07/20 13:49 HH (Rec: 07/07/20 14:12 [email or web address]) Special Tests Knee Special Tests MATI Test Results -ve B Apley's Compression Test Results -ve B Varus- 25 Degrees Test Results -ve B Varus- 0 Degrees Test Results -ve B Valgus- 25 Degrees Test Results -ve B Valgus- 0 Degrees Test Results -ve B PT-OP-M Strength Start: 07/07/20 12:58 Freq: Status: Active Protocol: Document 07/07/20 13:49 HH (Rec: 07/07/20 14:12 HH [email or web address]) Hip Strength Hip Manual Muscle Testing Right Flexion (L2) 3+ Fair+ Extension (S1) 4- Good- Abduction 3+ Fair+ Adduction 4- Good- Left Flexion (L2) 4+ Good+ Extension (S1) 4+ Good+ Abduction 4+ Good+ Adduction 4+ Good+ Knee Strength Knee Manual Muscle Testing Right Flexion (S2) 4 Good Extension (L3) 4- Good- Comments painful arc from knee flexion 30-0 degrees. Left Flexion (S2) 4+ Good+ Extension (L3) 4+ Good+ Ankle/Foot Strength Ankle and Foot Manual Muscle Testing Right Dorsiflexion (L4) 4 Good Plantarflexion (S1) 4 Good Inversion 4 Good Eversion (S1) 4+ Good+ Left Dorsiflexion (L4) 4+ Good+ Plantarflexion (S1) 4+ Good+ Inversion 4+ Good+ Eversion (S1) 4+ Good+ PT-OP-Q Treatments Start: 07/07/20 12:58 Freq: Status: Active Protocol: Document 07/23/20 14:31 HH (Rec: 07/23/20 15:20 HH [id number]) Cardio Equipment Bicycle (Upright) Duration (Minutes) 5 Resistance 5 Seat Position 5 Gym Equipment Shuttle Recovery SL squat Resistance #37 for L, #37 R Shuttle Recovery Platform Stable Reps/Time 10 x2 Therapeutic Exercises Supine Exercises hip ER Supine Exercise Name unilateral Side bilateral Equipment Used green band Reps/Minutes 10 x 3 SAQ Side bilateral Reps/Minutes 3 sec holds 8 reps x2 Sidelying Exercises clamshell Side bilateral Reps/Minutes 10 x2 Standing Exercises sissy squat Standing Exercise Name heel lift with stephania board Side bilateral Equipment Used stephania Reps/Minutes 10 x2 SLS Side bilateral Reps/Minutes 8 sec each x 5 each side step up Side bilateral Equipment Used 6 step Reps/Minutes 8 x2 Comments with UE support Therapeutic Activity Therapeutic Activity stair climb Reps/Minutes 5 rounds Comments without railings step over pattern Manual Therapy Treatment Soft Tissue Mobilization R hip adductors Mobilization Type Rolling,Sustained Pressure, Trigger Point Release Intensity/Depth Moderate Body Position Supine Comments significant tenderness to light pressure today. Joint Mobilizations patella mob Joint patellofemoral joint Direction sup/inf and medial mob Grade IV Body Position Supine PT-OP-T Assessment and Plan Start: 07/07/20 12:58 Freq: Status: Active Protocol: Document 07/23/20 14:31 HH (Rec: 07/23/20 15:20 HH [id number]) Physical Therapy Assessment Goals return to PLOF Impairment unable to participate TM daily walking for 45 mins Short Term Goal (STG) pt will be able to return to her TM for daily walking up to 20 mins, 4 times a week STG Duration 5 weeks Jail Goal (LTG) pt will be able to fully return to her TM for daily walking up to 45 mins, 5 times a week LTG Duration 10 weeks SLS Impairment R= 3s L= 8 s Short Term Goal (STG) pt will improve both improve single leg stability and strength to increase SLS by 5 seconds from baseline. STG Duration 5 weeks Global Category Manager Goal (LTG) pt will improve both improve single leg stability and strength to increase SLS by 10 seconds from baseline. LTG Duration 10 weeks stair climbing Impairment pt leads with LLE to ascend and descend d/t pain Short Term Goal (STG) pt will be able to complete stairs climbing with step over pattern with B rails support with min discomfort at R knee STG Duration 5 weeks Jail Goal (LTG) pt will be able to complete stairs climbing with step over pattern without use of handrails and no complaints of knee pain LTG Duration 10 weeks LEFS Impairment pt scores 34 for LEFS Short Term Goal (STG) Pt will score 45 on LEFS to improve her quality of life STG Duration 5 weeks Jail Goal (LTG) pt will score >60 on LEFS to improver her functional mobility and quality of life. LTG Duration 10 weeks Assessment Summary Assessment Pt progress very well so far. No pain with end range knee flexion and able to climb stairs without ralinings (step over pattern) without any discomfort today. Pt does have significant tenderness to pressure at R hip adductors. Physical Therapy Plan Frequency and Duration Frequency of Treatment 2x/Week Duration of Treatment 10 weeks Plan of Care Start Date 07/07/20 Plan of Care End Date 09/20/20 Next Visit Focus/Plan Next Note Type Treatment Note Next Visit Plan patella mobility R hip sttrengthening ( clamshell, hip ext, ) SAQ, LAQ, HS curl SLS as aime uneven surface balance trianing
--- NOTE | 2020-08-10 16:15 | PT.OTN ---
Current Diagnoses Pain in unspecified knee (08/10/20) Physical Therapy Treatment Note PT-OP-A Visit Information Start: 07/07/20 12:58 Freq: Status: Active Protocol: Document 08/10/20 15:16 HH (Rec: 08/10/20 16:15 [id number]) Out-Patient Physical Therapy Visit Information Visit Information Visit Type Treatment Note Visit Start Time 15:17 Visit Stop Time 16:01 Total Visit Minutes 44 Visit Number 02/06 Number of ROLL FILLER Visits 0 PT-OP-B Current Condition Start: 07/07/20 12:58 Freq: Status: Active Protocol: Document 07/07/20 13:49 HH (Rec: 07/07/20 14:12 [email or web address]) Current Condition History of Current Condition Onset Date 1 year ago Current Complaints R knee pain, difficulty in walking and stair climbing History of Current Condition Pt is a 75yo female here for R knee pain, difficulty in walking and stair climbing. She was walking quickly across to the deck chasing a deer when she slipped and caught herself hard on her R leg but didnt fall. There was swelling but no bruising. Pain has been getting better but cont to have pain particularly when going down stairs. She feels like her knee will give out sometimes. She currently has to climb stairs with B rails with step to pattern only. Pt has not been able to cont her daily walking routine on treadmill 45mins/day. Her current routine is mostly gardening and short walks with her friends. Pt also stated she is very afraid of falling in general. Prior Treatments and Tests 05/26/20 X-ray IMPRESSION: Right knee without acute osseous abnormalities. 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 Treatment Goals Patient/Caregiver Goals 1. To regain her full ROM 2. To improve her balance 3. to be able to climb stairs witohut using handrails. PT-OP-C Subjective Start: 07/07/20 12:58 Freq: Status: Active Protocol: Document 08/10/20 15:16 HH (Rec: 08/10/20 16:15 [id number]) OP-PT Subjective Patient Comments Patient Comments Zaria been using my treadmill for 30 mins for 4 to 5 times a week. It did bother me a little me at the end of it. Im gaining more confidence in general Patient Reported Progress Improving PT-OP-D Balance Start: 07/07/20 12:58 Freq: Status: Active Protocol: Document 07/07/20 13:49 HH (Rec: 07/07/20 14:12 [email or web address]) Balance Tests Single Limb Standing Single Limb- Right 5 Single Limb- Left 9 PT-OP-F Manual Assessment Start: 07/07/20 12:58 Freq: Status: Active Protocol: Document 07/07/20 13:49 HH (Rec: 07/07/20 14:12 [email or web address]) Manual Assessments Soft Tissue Assessment Soft Tissue Mobility Assessment painful to pressure at lateral border and center of R patella. Joint Mobility Assessment Joint Mobility Assessment decreased lateral and medial patella mobility on R side. PT-OP-G Mobility & Gait Start: 07/07/20 12:58 Freq: Status: Active Protocol: Document 07/07/20 13:49 HH (Rec: 07/07/20 14:12 [email or web address]) OP Gait Assessment Factors Limiting Gait Function Factors Limiting Gait Function Decreased Strength,Pain,Poor Balance Comments Gait Comments increased R knee valgus noted during stance phase on RLE Stair Climbing Evaluation Devices Stair Climbing Assistive Devices Left Railing,Right Railing Technique/Endurance Stair Climbing Direction Ascend and Descend Stair Climbing Technique Step to Step Number of Steps Climbed 4 Stair Climbing Set # Repetitions (reps) 2 Comments Stair Climbing Comments pt leads with LLE to ascend and descend. Increased pain noted with descend with eccentric knee flexion. PT-OP-K Range of Motion Start: 07/07/20 12:58 Freq: Status: Active Protocol: Document 07/07/20 13:49 HH (Rec: 07/07/20 14:12 [email or web address]) Knee Goniometric Range of Motion Knee Right Knee ROM WFL Yes Patient Position Supine Flexion Active (degrees) 157 Extension Active (degrees) 0 Comments pain R patella (lateral border ) at end range Left Knee ROM WFL Yes Patient Position Supine Flexion Active (degrees) 165 Extension Active (degrees) 0 Knee ROM Limitations Knee ROM Limitations Soft Tissue Tightness,Pain PT-OP-L Special Tests Start: 07/07/20 12:58 Freq: Status: Active Protocol: Document 07/07/20 13:49 HH (Rec: 07/07/20 14:12 [email or web address]) Special Tests Knee Special Tests MATI Test Results -ve B Apley's Compression Test Results -ve B Varus- 25 Degrees Test Results -ve B Varus- 0 Degrees Test Results -ve B Valgus- 25 Degrees Test Results -ve B Valgus- 0 Degrees Test Results -ve B PT-OP-M Strength Start: 07/07/20 12:58 Freq: Status: Active Protocol: Document 07/07/20 13:49 HH (Rec: 07/07/20 14:12 [email or web address]) Hip Strength Hip Manual Muscle Testing Right Flexion (L2) 3+ Fair+ Extension (S1) 4- Good- Abduction 3+ Fair+ Adduction 4- Good- Left Flexion (L2) 4+ Good+ Extension (S1) 4+ Good+ Abduction 4+ Good+ Adduction 4+ Good+ Knee Strength Knee Manual Muscle Testing Right Flexion (S2) 4 Good Extension (L3) 4- Good- Comments painful arc from knee flexion 30-0 degrees. Left Flexion (S2) 4+ Good+ Extension (L3) 4+ Good+ Ankle/Foot Strength Ankle and Foot Manual Muscle Testing Right Dorsiflexion (L4) 4 Good Plantarflexion (S1) 4 Good Inversion 4 Good Eversion (S1) 4+ Good+ Left Dorsiflexion (L4) 4+ Good+ Plantarflexion (S1) 4+ Good+ Inversion 4+ Good+ Eversion (S1) 4+ Good+ PT-OP-Q Treatments Start: 07/07/20 12:58 Freq: Status: Active Protocol: Document 08/10/20 15:16 (Rec: 08/10/20 16:15 [id number]) Cardio Equipment Bicycle (Upright) Duration (Minutes) 5 Resistance 5 Seat Position 5 Therapeutic Exercises Sitting Exercises LAQ Side bilateral Equipment Used ball between knees Reps/Minutes 10 x 2 Standing Exercises step down Side bilateral Equipment Used 4 step Reps/Minutes 10 x 2 Comments with UE support, minimal discomfort sissy squat Standing Exercise Name heel lift with stephania board Side bilateral Equipment Used stephania Reps/Minutes 10 x2 SLS Side bilateral Reps/Minutes 12s each x 5 each side step up Side bilateral Equipment Used 6 step Reps/Minutes 8 x2 Comments without support PT-OP-T Assessment and Plan Start: 07/07/20 12:58 Freq: Status: Active Protocol: Document 08/10/20 15:16 (Rec: 08/10/20 16:15 [id number]) Physical Therapy Assessment Goals return to PLOF Impairment unable to participate TM daily walking for 45 mins Short Term Goal (STG) pt will be able to return to her TM for daily walking up to 20 mins, 4 times a week STG Duration 5 weeks Mcfp Goal (LTG) pt will be able to fully return to her TM for daily walking up to 45 mins, 5 times a week LTG Duration 10 weeks SLS Impairment R= 3s L= 8 s Short Term Goal (STG) pt will improve both improve single leg stability and strength to increase SLS by 5 seconds from baseline. STG Duration 5 weeks Mcfp Goal (LTG) pt will improve both improve single leg stability and strength to increase SLS by 10 seconds from baseline. LTG Duration 10 weeks stair climbing Impairment pt leads with LLE to ascend and descend d/t pain Short Term Goal (STG) pt will be able to complete stairs climbing with step over pattern with B rails support with min discomfort at R knee STG Duration 5 weeks Mcfp Goal (LTG) pt will be able to complete stairs climbing with step over pattern without use of handrails and no complaints of knee pain LTG Duration 10 weeks LEFS Impairment pt scores 34 for LEFS Short Term Goal (STG) Pt will score 45 on LEFS to improve her quality of life STG Duration 5 weeks Airframe And Powerplant Technician Goal (LTG) pt will score >60 on LEFS to improver her functional mobility and quality of life. LTG Duration 10 weeks Assessment Summary Assessment Pt cont to improve and able to aime TM walking 5 times a week now. Pt still has residual discomfort during step down but subside after a series of strengthening ex. Physical Therapy Plan Frequency and Duration Frequency of Treatment 2x/Week Duration of Treatment 10 weeks Plan of Care Start Date 07/07/20 Plan of Care End Date 09/20/20 Next Visit Focus/Plan Next Note Type Treatment Note Next Visit Plan patella mobility R hip sttrengthening ( clamshell, hip ext, ) SAQ, LAQ, HS curl SLS as aime uneven surface balance trianing
--- NOTE | 2020-08-25 15:37 | PT.OTN ---
Current Diagnoses Pain in unspecified knee (08/25/20) Physical Therapy Treatment Note PT-OP-A Visit Information Start: 07/07/20 12:58 Freq: Status: Active Protocol: Document 08/25/20 12:53 HH (Rec: 08/25/20 15:36 [id number]) Out-Patient Physical Therapy Visit Information Visit Information Visit Type Treatment Note Visit Start Time 13:00 Visit Stop Time 13:44 Total Visit Minutes 44 Visit Number 03/08 Number of [place] [employer] Visits 0 PT-OP-B Current Condition Start: 07/07/20 12:58 Freq: Status: Active Protocol: Document 07/07/20 13:49 HH (Rec: 07/07/20 14:12 HH [email or web address]) Current Condition History of Current Condition Onset Date 1 year ago Current Complaints R knee pain, difficulty in walking and stair climbing History of Current Condition Pt is a 75yo female here for R knee pain, difficulty in walking and stair climbing. She was walking quickly across to the deck chasing a deer when she slipped and caught herself hard on her R leg but didnt fall. There was swelling but no bruising. Pain has been getting better but cont to have pain particularly when going down stairs. She feels like her knee will give out sometimes. She currently has to climb stairs with B rails with step to pattern only. Pt has not been able to cont her daily walking routine on treadmill 45mins/day. Her current routine is mostly gardening and short walks with her friends. Pt also stated she is very afraid of falling in general. Prior Treatments and Tests 05/26/20 X-ray IMPRESSION: Right knee without acute osseous abnormalities. 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 Treatment Goals Patient/Caregiver Goals 1. To regain her full ROM 2. To improve her balance 3. to be able to climb stairs witohut using handrails. PT-OP-C Subjective Start: 07/07/20 12:58 Freq: Status: Active Protocol: Document 08/25/20 12:53 HH (Rec: 08/25/20 15:36 [id number]) OP-PT Subjective Patient Comments Patient Comments My knee is a lot better and i have no trouble walking, climbing stairs but does have discomfort while kneeling/ crawling in the yard. Im walking on my treadmill 3- 4times a week for 40-45mins each. Patient Reported Progress Improving PT-OP-D Balance Start: 07/07/20 12:58 Freq: Status: Active Protocol: Document 07/07/20 13:49 HH (Rec: 07/07/20 14:12 [email or web address]) Balance Tests Single Limb Standing Single Limb- Right 5 Single Limb- Left 9 PT-OP-F Manual Assessment Start: 07/07/20 12:58 Freq: Status: Active Protocol: Document 07/07/20 13:49 HH (Rec: 07/07/20 14:12 HH [email or web address]) Manual Assessments Soft Tissue Assessment Soft Tissue Mobility Assessment painful to pressure at lateral border and center of R patella. Joint Mobility Assessment Joint Mobility Assessment decreased lateral and medial patella mobility on R side. PT-OP-G Mobility & Gait Start: 07/07/20 12:58 Freq: Status: Active Protocol: Document 07/07/20 13:49 HH (Rec: 07/07/20 14:12 [email or web address]) OP Gait Assessment Factors Limiting Gait Function Factors Limiting Gait Function Decreased Strength,Pain,Poor Balance Comments Gait Comments increased R knee valgus noted during stance phase on RLE Stair Climbing Evaluation Devices Stair Climbing Assistive Devices Left Railing,Right Railing Technique/Endurance Stair Climbing Direction Ascend and Descend Stair Climbing Technique Step to Step Number of Steps Climbed 4 Stair Climbing Set # Repetitions (reps) 2 Comments Stair Climbing Comments pt leads with LLE to ascend and descend. Increased pain noted with descend with eccentric knee flexion. PT-OP-K Range of Motion Start: 07/07/20 12:58 Freq: Status: Active Protocol: Document 07/07/20 13:49 HH (Rec: 07/07/20 14:12 HH [email or web address]) Knee Goniometric Range of Motion Knee Right Knee ROM WFL Yes Patient Position Supine Flexion Active (degrees) 157 Extension Active (degrees) 0 Comments pain R patella (lateral border ) at end range Left Knee ROM WFL Yes Patient Position Supine Flexion Active (degrees) 165 Extension Active (degrees) 0 Knee ROM Limitations Knee ROM Limitations Soft Tissue Tightness,Pain PT-OP-L Special Tests Start: 07/07/20 12:58 Freq: Status: Active Protocol: Document 07/07/20 13:49 HH (Rec: 07/07/20 14:12 [email or web address]) Special Tests Knee Special Tests MATI Test Results -ve B Apley's Compression Test Results -ve B Varus- 25 Degrees Test Results -ve B Varus- 0 Degrees Test Results -ve B Valgus- 25 Degrees Test Results -ve B Valgus- 0 Degrees Test Results -ve B PT-OP-M Strength Start: 07/07/20 12:58 Freq: Status: Active Protocol: Document 07/07/20 13:49 (Rec: 07/07/20 14:12 [email or web address]) Hip Strength Hip Manual Muscle Testing Right Flexion (L2) 3+ Fair+ Extension (S1) 4- Good- Abduction 3+ Fair+ Adduction 4- Good- Left Flexion (L2) 4+ Good+ Extension (S1) 4+ Good+ Abduction 4+ Good+ Adduction 4+ Good+ Knee Strength Knee Manual Muscle Testing Right Flexion (S2) 4 Good Extension (L3) 4- Good- Comments painful arc from knee flexion 30-0 degrees. Left Flexion (S2) 4+ Good+ Extension (L3) 4+ Good+ Ankle/Foot Strength Ankle and Foot Manual Muscle Testing Right Dorsiflexion (L4) 4 Good Plantarflexion (S1) 4 Good Inversion 4 Good Eversion (S1) 4+ Good+ Left Dorsiflexion (L4) 4+ Good+ Plantarflexion (S1) 4+ Good+ Inversion 4+ Good+ Eversion (S1) 4+ Good+ PT-OP-Q Treatments Start: 07/07/20 12:58 Freq: Status: Active Protocol: Document 08/25/20 12:53 (Rec: 08/25/20 15:36 [id number]) Cardio Equipment Bicycle (Upright) Duration (Minutes) 5 Resistance 5 Seat Position 5 Therapeutic Exercises Sitting Exercises LAQ Side bilateral Equipment Used ankle weight 5# Reps/Minutes 10 x 2 Standing Exercises toe tap Standing Exercise Name 3 way toe tap Side bilateral Reps/Minutes tennis ball Comments fwd, lateral, bwd step down Side bilateral Equipment Used 4 step Reps/Minutes 10 x 2 Comments with UE support, minimal discomfort SLS Side bilateral Reps/Minutes 12s each x 5 each side step up Side bilateral Equipment Used 12 step Reps/Minutes 6x2 Comments with 1 UE support, pt got fatigue and needed rest between each set. Manual Therapy Treatment Soft Tissue Mobilization distal quad Mobilization Type Sustained Pressure,Trigger Point Release Intensity/Depth Moderate Body Position Supine Neuro Re-Education Treatment Balance Activities SLS Details blue foam Reps/Duration 5 sec each x5 PT-OP-T Assessment and Plan Start: 07/07/20 12:58 Freq: Status: Active Protocol: Document 08/25/20 12:53 HH (Rec: 08/25/20 15:36 HH [id number]) Physical Therapy Assessment Goals return to PLOF Impairment unable to participate TM daily walking for 45 mins Short Term Goal (STG) pt will be able to return to her TM for daily walking up to 20 mins, 4 times a week STG Duration 5 weeks Reuse Technician Goal (LTG) pt will be able to fully return to her TM for daily walking up to 45 mins, 5 times a week LTG Duration 10 weeks SLS Impairment R= 3s L= 8 s Short Term Goal (STG) pt will improve both improve single leg stability and strength to increase SLS by 5 seconds from baseline. STG Duration 5 weeks Snf Goal (LTG) pt will improve both improve single leg stability and strength to increase SLS by 10 seconds from baseline. LTG Duration 10 weeks stair climbing Impairment pt leads with LLE to ascend and descend d/t pain Short Term Goal (STG) pt will be able to complete stairs climbing with step over pattern with B rails support with min discomfort at R knee STG Duration 5 weeks Snf Goal (LTG) pt will be able to complete stairs climbing with step over pattern without use of handrails and no complaints of knee pain LTG Duration 10 weeks LEFS Impairment pt scores 34 for LEFS Short Term Goal (STG) Pt will score 45 on LEFS to improve her quality of life STG Duration 5 weeks Snf Goal (LTG) pt will score >60 on LEFS to improver her functional mobility and quality of life. LTG Duration 10 weeks Progress Towards Goals Progress Towards Goals Progressing Toward Goals Assessment Summary Assessment Pt cont to improve and stated she is 85% recovered. She said she still has fear of falling while star climbing and has difficulty crawling on her knees. Cont to focus on strength training and balance training. Physical Therapy Plan Frequency and Duration Frequency of Treatment 2x/Week Duration of Treatment 10 weeks Plan of Care Start Date 07/07/20 Plan of Care End Date 09/20/20 Next Visit Focus/Plan Next Note Type Treatment Note Next Visit Plan patella mobility R hip sttrengthening ( clamshell, hip ext, ) SAQ, LAQ, HS curl SLS as aime uneven surface balance trianing
--- NOTE | 2020-09-01 15:17 | PT.OTN ---
Current Diagnoses Pain in unspecified knee (09/01/20) Physical Therapy Treatment Note PT-OP-A Visit Information Start: 07/07/20 12:58 Freq: Status: Active Protocol: Document 09/01/20 14:28 HH (Rec: 09/01/20 15:17 [email or web address]) Out-Patient Physical Therapy Visit Information Visit Information Visit Type Treatment Note Visit Start Time 14:30 Visit Stop Time 15:15 Total Visit Minutes 45 Visit Number 04/08 Number of SLEEP MEDICINE PHYSICIAN Visits 0 PT-OP-B Current Condition Start: 07/07/20 12:58 Freq: Status: Active Protocol: Document 07/07/20 13:49 HH (Rec: 07/07/20 14:12 HH [email or web address]) Current Condition History of Current Condition Onset Date 1 year ago Current Complaints R knee pain, difficulty in walking and stair climbing History of Current Condition Pt is a 75yo female here for R knee pain, difficulty in walking and stair climbing. She was walking quickly across to the deck chasing a deer when she slipped and caught herself hard on her R leg but didnt fall. There was swelling but no bruising. Pain has been getting better but cont to have pain particularly when going down stairs. She feels like her knee will give out sometimes. She currently has to climb stairs with B rails with step to pattern only. Pt has not been able to cont her daily walking routine on treadmill 45mins/day. Her current routine is mostly gardening and short walks with her friends. Pt also stated she is very afraid of falling in general. Prior Treatments and Tests 05/26/20 X-ray IMPRESSION: Right knee without acute osseous abnormalities. 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 Treatment Goals Patient/Caregiver Goals 1. To regain her full ROM 2. To improve her balance 3. to be able to climb stairs witohut using handrails. PT-OP-C Subjective Start: 07/07/20 12:58 Freq: Status: Active Protocol: Document 09/01/20 14:28 HH (Rec: 09/01/20 15:17 HH [id number]) OP-PT Subjective Patient Comments Patient Comments I dont have problem doing stairs now. Zaria been doing all my exercises Patient Reported Progress Improving PT-OP-D Balance Start: 07/07/20 12:58 Freq: Status: Active Protocol: Document 07/07/20 13:49 HH (Rec: 07/07/20 14:12 [email or web address]) Balance Tests Single Limb Standing Single Limb- Right 5 Single Limb- Left 9 PT-OP-F Manual Assessment Start: 07/07/20 12:58 Freq: Status: Active Protocol: Document 07/07/20 13:49 HH (Rec: 07/07/20 14:12 HH [email or web address]) Manual Assessments Soft Tissue Assessment Soft Tissue Mobility Assessment painful to pressure at lateral border and center of R patella. Joint Mobility Assessment Joint Mobility Assessment decreased lateral and medial patella mobility on R side. PT-OP-G Mobility & Gait Start: 07/07/20 12:58 Freq: Status: Active Protocol: Document 07/07/20 13:49 HH (Rec: 07/07/20 14:12 [email or web address]) OP Gait Assessment Factors Limiting Gait Function Factors Limiting Gait Function Decreased Strength,Pain,Poor Balance Comments Gait Comments increased R knee valgus noted during stance phase on RLE Stair Climbing Evaluation Devices Stair Climbing Assistive Devices Left Railing,Right Railing Technique/Endurance Stair Climbing Direction Ascend and Descend Stair Climbing Technique Step to Step Number of Steps Climbed 4 Stair Climbing Set # Repetitions (reps) 2 Comments Stair Climbing Comments pt leads with LLE to ascend and descend. Increased pain noted with descend with eccentric knee flexion. PT-OP-K Range of Motion Start: 07/07/20 12:58 Freq: Status: Active Protocol: Document 07/07/20 13:49 HH (Rec: 07/07/20 14:12 [email or web address]) Knee Goniometric Range of Motion Knee Right Knee ROM WFL Yes Patient Position Supine Flexion Active (degrees) 157 Extension Active (degrees) 0 Comments pain R patella (lateral border ) at end range Left Knee ROM WFL Yes Patient Position Supine Flexion Active (degrees) 165 Extension Active (degrees) 0 Knee ROM Limitations Knee ROM Limitations Soft Tissue Tightness,Pain PT-OP-L Special Tests Start: 07/07/20 12:58 Freq: Status: Active Protocol: Document 07/07/20 13:49 HH (Rec: 07/07/20 14:12 [email or web address]) Special Tests Knee Special Tests MATI Test Results -ve B Apley's Compression Test Results -ve B Varus- 25 Degrees Test Results -ve B Varus- 0 Degrees Test Results -ve B Valgus- 25 Degrees Test Results -ve B Valgus- 0 Degrees Test Results -ve B PT-OP-M Strength Start: 07/07/20 12:58 Freq: Status: Active Protocol: Document 07/07/20 13:49 HH (Rec: 07/07/20 14:12 HH [email or web address]) Hip Strength Hip Manual Muscle Testing Right Flexion (L2) 3+ Fair+ Extension (S1) 4- Good- Abduction 3+ Fair+ Adduction 4- Good- Left Flexion (L2) 4+ Good+ Extension (S1) 4+ Good+ Abduction 4+ Good+ Adduction 4+ Good+ Knee Strength Knee Manual Muscle Testing Right Flexion (S2) 4 Good Extension (L3) 4- Good- Comments painful arc from knee flexion 30-0 degrees. Left Flexion (S2) 4+ Good+ Extension (L3) 4+ Good+ Ankle/Foot Strength Ankle and Foot Manual Muscle Testing Right Dorsiflexion (L4) 4 Good Plantarflexion (S1) 4 Good Inversion 4 Good Eversion (S1) 4+ Good+ Left Dorsiflexion (L4) 4+ Good+ Plantarflexion (S1) 4+ Good+ Inversion 4+ Good+ Eversion (S1) 4+ Good+ PT-OP-Q Treatments Start: 07/07/20 12:58 Freq: Status: Active Protocol: Document 09/01/20 14:28 HH (Rec: 09/01/20 15:17 HH [id number]) Cardio Equipment Bicycle (Upright) Duration (Minutes) 5 Resistance 5 Seat Position 5 Gym Equipment Shuttle Balance red clips Reps/Duration 8 mins Comments static stance with normal IVAN then staggered stance. Therapeutic Exercises Sitting Exercises LAQ Side bilateral Equipment Used ankle weight 5# Reps/Minutes 10 x 2 Standing Exercises RDL Standing Exercise Name cone tap on the table Side bilateral Reps/Minutes 2 rounds x 4 toe tap Standing Exercise Name 3 way toe tap Side bilateral Reps/Minutes tennis ball Comments fwd, lateral, bwd step down Side bilateral Equipment Used 4 step Reps/Minutes 10 x 2 Comments with UE support, minimal discomfort SLS Side bilateral Reps/Minutes 12s each x 5 each side step up Side bilateral Equipment Used 12 step Reps/Minutes 6x2 Comments with 1 UE support, pt got fatigue and needed rest between each set. Therapeutic Activity Therapeutic Activity stair climb Reps/Minutes 4 laps x 2 sets Comments no UE needed, no c/o Neuro Re-Education Treatment Balance Activities SLS Details blue foam Reps/Duration 5 sec each x5 PT-OP-T Assessment and Plan Start: 07/07/20 12:58 Freq: Status: Active Protocol: Document 09/01/20 14:28 (Rec: 09/01/20 15:17 [id number]) Physical Therapy Assessment Goals return to PLOF Impairment unable to participate TM daily walking for 45 mins Short Term Goal (STG) pt will be able to return to her TM for daily walking up to 20 mins, 4 times a week STG Duration 5 weeks [employer] Goal (LTG) pt will be able to fully return to her TM for daily walking up to 45 mins, 5 times a week LTG Duration 10 weeks SLS Impairment R= 3s L= 8 s Short Term Goal (STG) pt will improve both improve single leg stability and strength to increase SLS by 5 seconds from baseline. STG Duration 5 weeks [employer] Goal (LTG) pt will improve both improve single leg stability and strength to increase SLS by 10 seconds from baseline. LTG Duration 10 weeks stair climbing Impairment pt leads with LLE to ascend and descend d/t pain Short Term Goal (STG) pt will be able to complete stairs climbing with step over pattern with B rails support with min discomfort at R knee STG Duration 5 weeks Halfway Goal (LTG) pt will be able to complete stairs climbing with step over pattern without use of handrails and no complaints of knee pain LTG Duration 10 weeks LEFS Impairment pt scores 34 for LEFS Short Term Goal (STG) Pt will score 45 on LEFS to improve her quality of life STG Duration 5 weeks Halfway Goal (LTG) pt will score >60 on LEFS to improver her functional mobility and quality of life. LTG Duration 10 weeks Assessment Summary Assessment Pt has no discomfort during session. She also completed 2 laps of stair climb without using railings. Expect pt to be DC in 2 visits. Physical Therapy Plan Frequency and Duration Frequency of Treatment 2x/Week Duration of Treatment 10 weeks Plan of Care Start Date 07/07/20 Plan of Care End Date 09/20/20 Next Visit Focus/Plan Next Note Type Treatment Note Next Visit Plan patella mobility R hip sttrengthening ( clamshell, hip ext, ) SAQ, LAQ, HS curl SLS as aime uneven surface balance trianing
--- NOTE | 2020-09-07 15:15 | PT.OTN ---
Current Diagnoses Pain in unspecified knee (09/07/20) Physical Therapy Treatment Note PT-OP-A Visit Information Start: 07/07/20 12:58 Freq: Status: Active Protocol: Document 09/07/20 14:34 HH (Rec: 09/07/20 15:15 [id number]) Out-Patient Physical Therapy Visit Information Visit Information Visit Type Treatment Note Visit Start Time 14:34 Visit Stop Time 15:15 Total Visit Minutes 41 Visit Number 05/09 Number of VISITOR SERVICES COORDINATOR Visits 0 PT-OP-B Current Condition Start: 07/07/20 12:58 Freq: Status: Active Protocol: Document 07/07/20 13:49 HH (Rec: 07/07/20 14:12 HH [email or web address]) Current Condition History of Current Condition Onset Date 1 year ago Current Complaints R knee pain, difficulty in walking and stair climbing History of Current Condition Pt is a 75yo female here for R knee pain, difficulty in walking and stair climbing. She was walking quickly across to the deck chasing a deer when she slipped and caught herself hard on her R leg but didnt fall. There was swelling but no bruising. Pain has been getting better but cont to have pain particularly when going down stairs. She feels like her knee will give out sometimes. She currently has to climb stairs with B rails with step to pattern only. Pt has not been able to cont her daily walking routine on treadmill 45mins/day. Her current routine is mostly gardening and short walks with her friends. Pt also stated she is very afraid of falling in general. Prior Treatments and Tests 05/26/20 X-ray IMPRESSION: Right knee without acute osseous abnormalities. 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 Treatment Goals Patient/Caregiver Goals 1. To regain her full ROM 2. To improve her balance 3. to be able to climb stairs witohut using handrails. PT-OP-C Subjective Start: 07/07/20 12:58 Freq: Status: Active Protocol: Document 09/07/20 14:34 HH (Rec: 09/07/20 15:15 HH [id number]) OP-PT Subjective Patient Comments Patient Comments Im doing good so far and ravi been doing step without holding on rail. Patient Reported Progress Improving PT-OP-D Balance Start: 07/07/20 12:58 Freq: Status: Active Protocol: Document 07/07/20 13:49 HH (Rec: 07/07/20 14:12 [email or web address]) Balance Tests Single Limb Standing Single Limb- Right 5 Single Limb- Left 9 PT-OP-F Manual Assessment Start: 07/07/20 12:58 Freq: Status: Active Protocol: Document 07/07/20 13:49 HH (Rec: 07/07/20 14:12 HH [email or web address]) Manual Assessments Soft Tissue Assessment Soft Tissue Mobility Assessment painful to pressure at lateral border and center of R patella. Joint Mobility Assessment Joint Mobility Assessment decreased lateral and medial patella mobility on R side. PT-OP-G Mobility & Gait Start: 07/07/20 12:58 Freq: Status: Active Protocol: Document 07/07/20 13:49 HH (Rec: 07/07/20 14:12 [email or web address]) OP Gait Assessment Factors Limiting Gait Function Factors Limiting Gait Function Decreased Strength,Pain,Poor Balance Comments Gait Comments increased R knee valgus noted during stance phase on RLE Stair Climbing Evaluation Devices Stair Climbing Assistive Devices Left Railing,Right Railing Technique/Endurance Stair Climbing Direction Ascend and Descend Stair Climbing Technique Step to Step Number of Steps Climbed 4 Stair Climbing Set # Repetitions (reps) 2 Comments Stair Climbing Comments pt leads with LLE to ascend and descend. Increased pain noted with descend with eccentric knee flexion. PT-OP-K Range of Motion Start: 07/07/20 12:58 Freq: Status: Active Protocol: Document 07/07/20 13:49 HH (Rec: 07/07/20 14:12 [email or web address]) Knee Goniometric Range of Motion Knee Right Knee ROM WFL Yes Patient Position Supine Flexion Active (degrees) 157 Extension Active (degrees) 0 Comments pain R patella (lateral border ) at end range Left Knee ROM WFL Yes Patient Position Supine Flexion Active (degrees) 165 Extension Active (degrees) 0 Knee ROM Limitations Knee ROM Limitations Soft Tissue Tightness,Pain PT-OP-L Special Tests Start: 07/07/20 12:58 Freq: Status: Active Protocol: Document 07/07/20 13:49 HH (Rec: 07/07/20 14:12 [email or web address]) Special Tests Knee Special Tests MATI Test Results -ve B Apley's Compression Test Results -ve B Varus- 25 Degrees Test Results -ve B Varus- 0 Degrees Test Results -ve B Valgus- 25 Degrees Test Results -ve B Valgus- 0 Degrees Test Results -ve B PT-OP-M Strength Start: 07/07/20 12:58 Freq: Status: Active Protocol: Document 07/07/20 13:49 HH (Rec: 07/07/20 14:12 HH [email or web address]) Hip Strength Hip Manual Muscle Testing Right Flexion (L2) 3+ Fair+ Extension (S1) 4- Good- Abduction 3+ Fair+ Adduction 4- Good- Left Flexion (L2) 4+ Good+ Extension (S1) 4+ Good+ Abduction 4+ Good+ Adduction 4+ Good+ Knee Strength Knee Manual Muscle Testing Right Flexion (S2) 4 Good Extension (L3) 4- Good- Comments painful arc from knee flexion 30-0 degrees. Left Flexion (S2) 4+ Good+ Extension (L3) 4+ Good+ Ankle/Foot Strength Ankle and Foot Manual Muscle Testing Right Dorsiflexion (L4) 4 Good Plantarflexion (S1) 4 Good Inversion 4 Good Eversion (S1) 4+ Good+ Left Dorsiflexion (L4) 4+ Good+ Plantarflexion (S1) 4+ Good+ Inversion 4+ Good+ Eversion (S1) 4+ Good+ PT-OP-Q Treatments Start: 07/07/20 12:58 Freq: Status: Active Protocol: Document 09/07/20 14:34 HH (Rec: 09/07/20 15:15 HH [id number]) Cardio Equipment Bicycle (Upright) Duration (Minutes) 8 Resistance 5 Seat Position 5 Therapeutic Exercises Standing Exercises RDL Standing Exercise Name cone tap on the table Side bilateral Reps/Minutes 2 rounds x 4 toe tap Standing Exercise Name 3 way toe tap Side bilateral Reps/Minutes tennis ball Comments fwd, lateral, bwd step down Side bilateral Equipment Used 4 step Reps/Minutes 10 x 2 Comments with UE support, minimal discomfort SLS Side bilateral Reps/Minutes 12s each x 5 each side step up Side bilateral Equipment Used 12 step Reps/Minutes 6x2 Comments with 1 UE support, pt got fatigue and needed rest between each set. Therapeutic Activity Therapeutic Activity stair climb Reps/Minutes 4 laps x 2 sets Comments no UE needed, no c/o Neuro Re-Education Treatment Balance Activities SLS Details blue foam Reps/Duration 5 sec each x5 PT-OP-T Assessment and Plan Start: 07/07/20 12:58 Freq: Status: Active Protocol: Document 09/07/20 14:34 HH (Rec: 09/07/20 15:15 [id number]) Physical Therapy Assessment Goals return to PLOF Impairment unable to participate TM daily walking for 45 mins Short Term Goal (STG) pt will be able to return to her TM for daily walking up to 20 mins, 4 times a week STG Duration 5 weeks Correction Goal (LTG) 09/07/20 pt has been able to use TM 5 times a week for 45 mins witohut discomfort. LTG Duration 10 weeks SLS Impairment R= 3s L= 8 s Short Term Goal (STG) pt will improve both improve single leg stability and strength to increase SLS by 5 seconds from baseline. STG Duration 5 weeks Correction Goal (LTG) 09/07/20 R SLS= 15-20s L SLS= 30s LTG Duration 10 weeks stair climbing Impairment pt leads with LLE to ascend and descend d/t pain Short Term Goal (STG) pt will be able to complete stairs climbing with step over pattern with B rails support with min discomfort at R knee STG Duration 5 weeks Correction Goal (LTG) pt will be able to complete stairs climbing with step over pattern without use of handrails and no complaints of knee pain LTG Duration 10 weeks LEFS Impairment pt scores 34 for LEFS Short Term Goal (STG) Pt will score 45 on LEFS to improve her quality of life STG Duration 5 weeks Truck Loader Overhead Crane Goal (LTG) pt will score >60 on LEFS to improver her functional mobility and quality of life. LTG Duration 10 weeks Assessment Summary Assessment pt aime session with focus on SL balance training and SL strengthening. Pt cont to improve since she has met all her goals, expect pt to be d/c next visit. Physical Therapy Plan Frequency and Duration Frequency of Treatment 2x/Week Duration of Treatment 10 weeks Plan of Care Start Date 07/07/20 Plan of Care End Date 09/20/20 Next Visit Focus/Plan Next Note Type Treatment Note Next Visit Plan patella mobility R hip sttrengthening ( clamshell, hip ext, ) SAQ, LAQ, HS curl SLS as aime uneven surface balance trianing
--- NOTE | 2020-09-15 13:38 | PT.OTN ---
Current Diagnoses Pain in unspecified knee (09/15/20) Physical Therapy Treatment Note PT-OP-A Visit Information Start: 07/07/20 12:58 Freq: Status: Active Protocol: Document 09/15/20 12:56 HH (Rec: 09/15/20 13:36 [id number]) Out-Patient Physical Therapy Visit Information Visit Information Visit Type Progress Note Visit Start Time 13:02 Visit Stop Time 13:45 Total Visit Minutes 43 Visit Number 06/08 Number of BACKROOM ASSOCIATE Visits 0 PT-OP-B Current Condition Start: 07/07/20 12:58 Freq: Status: Active Protocol: Document 07/07/20 13:49 HH (Rec: 07/07/20 14:12 [email or web address]) Current Condition History of Current Condition Onset Date 1 year ago Current Complaints R knee pain, difficulty in walking and stair climbing History of Current Condition Pt is a 75yo female here for R knee pain, difficulty in walking and stair climbing. She was walking quickly across to the deck chasing a deer when she slipped and caught herself hard on her R leg but didnt fall. There was swelling but no bruising. Pain has been getting better but cont to have pain particularly when going down stairs. She feels like her knee will give out sometimes. She currently has to climb stairs with B rails with step to pattern only. Pt has not been able to cont her daily walking routine on treadmill 45mins/day. Her current routine is mostly gardening and short walks with her friends. Pt also stated she is very afraid of falling in general. Prior Treatments and Tests 05/26/20 X-ray IMPRESSION: Right knee without acute osseous abnormalities. 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 Treatment Goals Patient/Caregiver Goals 1. To regain her full ROM 2. To improve her balance 3. to be able to climb stairs witohut using handrails. PT-OP-C Subjective Start: 07/07/20 12:58 Freq: Status: Active Protocol: Document 09/15/20 12:56 HH (Rec: 09/15/20 13:36 [id number]) OP-PT Subjective Patient Comments Patient Comments Im feeling good about everything and i can do stairs pretty well now. Zaria been practicing 2steps . Patient Reported Progress Improving Patient Questionnaires Lower Extremity Functional Scale LEFS Score 58 LEFS Impairment 20 to 39% Impaired (Score 48- 62) PT-OP-D Balance Start: 07/07/20 12:58 Freq: Status: Active Protocol: Document 07/07/20 13:49 HH (Rec: 07/07/20 14:12 [email or web address]) Balance Tests Single Limb Standing Single Limb- Right 5 Single Limb- Left 9 PT-OP-F Manual Assessment Start: 07/07/20 12:58 Freq: Status: Active Protocol: Document 07/07/20 13:49 HH (Rec: 07/07/20 14:12 [email or web address]) Manual Assessments Soft Tissue Assessment Soft Tissue Mobility Assessment painful to pressure at lateral border and center of R patella. Joint Mobility Assessment Joint Mobility Assessment decreased lateral and medial patella mobility on R side. PT-OP-G Mobility & Gait Start: 07/07/20 12:58 Freq: Status: Active Protocol: Document 07/07/20 13:49 HH (Rec: 07/07/20 14:12 [email or web address]) OP Gait Assessment Factors Limiting Gait Function Factors Limiting Gait Function Decreased Strength,Pain,Poor Balance Comments Gait Comments increased R knee valgus noted during stance phase on RLE Stair Climbing Evaluation Devices Stair Climbing Assistive Devices Left Railing,Right Railing Technique/Endurance Stair Climbing Direction Ascend and Descend Stair Climbing Technique Step to Step Number of Steps Climbed 4 Stair Climbing Set # Repetitions (reps) 2 Comments Stair Climbing Comments pt leads with LLE to ascend and descend. Increased pain noted with descend with eccentric knee flexion. PT-OP-K Range of Motion Start: 07/07/20 12:58 Freq: Status: Active Protocol: Document 07/07/20 13:49 HH (Rec: 07/07/20 14:12 [email or web address]) Knee Goniometric Range of Motion Knee Right Knee ROM WFL Yes Patient Position Supine Flexion Active (degrees) 157 Extension Active (degrees) 0 Comments pain R patella (lateral border ) at end range Left Knee ROM WFL Yes Patient Position Supine Flexion Active (degrees) 165 Extension Active (degrees) 0 Knee ROM Limitations Knee ROM Limitations Soft Tissue Tightness,Pain PT-OP-L Special Tests Start: 07/07/20 12:58 Freq: Status: Active Protocol: Document 07/07/20 13:49 HH (Rec: 07/07/20 14:12 [email or web address]) Special Tests Knee Special Tests MATI Test Results -ve B Apley's Compression Test Results -ve B Varus- 25 Degrees Test Results -ve B Varus- 0 Degrees Test Results -ve B Valgus- 25 Degrees Test Results -ve B Valgus- 0 Degrees Test Results -ve B PT-OP-M Strength Start: 07/07/20 12:58 Freq: Status: Active Protocol: Document 07/07/20 13:49 HH (Rec: 07/07/20 14:12 [email or web address]) Hip Strength Hip Manual Muscle Testing Right Flexion (L2) 3+ Fair+ Extension (S1) 4- Good- Abduction 3+ Fair+ Adduction 4- Good- Left Flexion (L2) 4+ Good+ Extension (S1) 4+ Good+ Abduction 4+ Good+ Adduction 4+ Good+ Knee Strength Knee Manual Muscle Testing Right Flexion (S2) 4 Good Extension (L3) 4- Good- Comments painful arc from knee flexion 30-0 degrees. Left Flexion (S2) 4+ Good+ Extension (L3) 4+ Good+ Ankle/Foot Strength Ankle and Foot Manual Muscle Testing Right Dorsiflexion (L4) 4 Good Plantarflexion (S1) 4 Good Inversion 4 Good Eversion (S1) 4+ Good+ Left Dorsiflexion (L4) 4+ Good+ Plantarflexion (S1) 4+ Good+ Inversion 4+ Good+ Eversion (S1) 4+ Good+ PT-OP-Q Treatments Start: 07/07/20 12:58 Freq: Status: Active Protocol: Document 09/15/20 12:56 (Rec: 09/15/20 13:36 HH [email or web address]) Cardio Equipment Bicycle (Upright) Duration (Minutes) 8 Resistance 5 Seat Position 5 Therapeutic Exercises Standing Exercises RDL Standing Exercise Name cone tap on the table Side bilateral Reps/Minutes 2 rounds x 4 toe tap Standing Exercise Name 3 way toe tap Side bilateral Reps/Minutes tennis ball Comments fwd, lateral, bwd step up Side bilateral Equipment Used 12 step Reps/Minutes 6x2 Comments with 1 UE support, pt got fatigue and needed rest between each set. Therapeutic Activity Therapeutic Activity stair climb Reps/Minutes 4 laps x 2 sets Comments no UE needed, no c/o Neuro Re-Education Treatment Balance Activities SLS Details blue foam Reps/Duration 5 sec each x5 PT-OP-T Assessment and Plan Start: 07/07/20 12:58 Freq: Status: Active Protocol: Document 09/15/20 12:56 HH (Rec: 09/15/20 13:36 HH [id number]) Physical Therapy Assessment Goals return to PLOF Impairment unable to participate TM daily walking for 45 mins Short Term Goal (STG) pt will be able to return to her TM for daily walking up to 20 mins, 4 times a week STG Duration 5 weeks [employer] Hcm Developer Goal (LTG) 09/07/20 pt has been able to use TM 5 times a week for 45 mins witohut discomfort. LTG Duration 10 weeks SLS Impairment R= 3s L= 8 s Short Term Goal (STG) pt will improve both improve single leg stability and strength to increase SLS by 5 seconds from baseline. STG Duration 5 weeks Peoplesoft Hcm Developer Goal (LTG) 09/07/20 R SLS= 15-20s L SLS= 30s LTG Duration 10 weeks stair climbing Impairment pt leads with LLE to ascend and descend d/t pain Short Term Goal (STG) pt will be able to complete stairs climbing with step over pattern with B rails support with min discomfort at R knee STG Duration 5 weeks Residential Goal (LTG) 09/15 pt is able to complete stairs climbing with step over pattern without use of handrails and no complaints of knee pain LTG Duration 10 weeks LEFS Impairment pt scores 34 for LEFS Short Term Goal (STG) Pt will score 45 on LEFS to improve her quality of life STG Duration 5 weeks Residential Goal (LTG) 09/15 pt scores 58 on LEFS pt will score >60 on LEFS to improver her functional mobility and quality of life. LTG Duration 10 weeks Progress Towards Goals Progress Towards Goals Goals Met Assessment Summary Assessment Pt overall progress well since initial evaluation. She can now climb stairs without railings and discomfort. Single leg has significantly improved and so does her overall confidence regarding mobility. Will contact pt in 2 weeks to monitor her progress . Physical Therapy Plan Frequency and Duration Frequency of Treatment 2x/Week Duration of Treatment 10 weeks Plan of Care Start Date 07/07/20 Plan of Care End Date 09/20/20 Discharge Physical Therapy Discharge Reasons Goals Met
--- NOTE | 2020-12-23 09:22 | PT.OPDS ---
Current Diagnoses Pain in unspecified knee (09/15/20) Visit Care Team Role Provider Type Rubi Smart DO Attending Provider Physician Primary Care Provider Referring Provider Specialty: [facility] Address: [address] [place] [address], [place], [address] Email: [email or web address] Visit Number Visit Number 06/08 Discharge Summary PT-OP-T Assessment and Plan Start: 07/07/20 12:58 Freq: Status: Active Protocol: Document 12/23/20 09:21 (Rec: 12/23/20 09:22 [email or web address]) Physical Therapy Plan Discharge Physical Therapy Discharge Reasons Goals Met Discharge Comments pt met all her goals from last visit. DC from PT.
== END 2020-12-23 14:15 ==
LOC: PHYS 13:00
PROVIDERS: PCP Family Medicine; Referring Provider Family Medicine; Visit Provider Family Medicine
DX: M25.569 Pain in unspecified knee (principal)
CPT/HCPCS: 97110; 97112; 97140; 97161; 97530

== ENCOUNTER → 2020-09-29 14:18 | Outpatient (CLI) | payer MEDICARE, OTHER, SELFPAY ==
[2020-09-29 16:07] LABS: BUN Creatinine Ratio 25.6 (6-22); Blood Urea Nitrogen 22 mg/dL (7-17); Calcium 9.3 mg/dL (8.4-10.2); Carbon Dioxide 35 mmol/L (22-32); Chloride 99 mmol/L (98-107); Estimated Glomerular Filt Rate > 60.0 mL/min (>60); Glucose 119 mg/dL (80-110); HEMOLYSIS < 15 (0-50); Potassium 3.5 mmol/L (3.4-5.1); Sodium 139 mmol/L (137-145)
[2020-09-29 16:24] LABS: Vitamin D 25 Hydroxy (D3) 46.2 ng/mL (30.0-100.0)
== END ==
PROVIDERS: PCP Family Medicine; Referring Provider Internal Medicine Endocrinology, Diabetes & Metabolism; Visit Provider Internal Medicine Endocrinology, Diabetes & Metabolism
DX: M81.0 Age-related osteoporosis without current pathological fracture (principal)
CPT/HCPCS: 36415; 80048; 82306

== ENCOUNTER → 2020-12-23 11:49 | Outpatient (CLI) | payer MEDICARE, OTHER, SELFPAY ==
[2020-12-23 13:06] LABS: BUN Creatinine Ratio 22.2 (6-22); Blood Urea Nitrogen 14 mg/dL (7-17); Calcium 9.5 mg/dL (8.4-10.2); Carbon Dioxide 29 mmol/L (22-32); Chloride 102 mmol/L (98-107); Estimated Glomerular Filt Rate > 60.0 mL/min (>60); Glucose 103 mg/dL (80-110); HEMOLYSIS < 15 (0-50); Potassium 3.7 mmol/L (3.4-5.1); Sodium 138 mmol/L (137-145)
[2020-12-23 16:24] LABS: Vitamin D 25 Hydroxy (D3) 43.7 ng/mL (30.0-100.0)
== END ==
PROVIDERS: PCP Family Medicine; Referring Provider Internal Medicine Endocrinology, Diabetes & Metabolism; Visit Provider Internal Medicine Endocrinology, Diabetes & Metabolism
DX: M81.0 Age-related osteoporosis without current pathological fracture (principal)
CPT/HCPCS: 36415; 80048; 82306

== ENCOUNTER → 2021-01-04 14:26 | Outpatient (CLI) | payer MEDICARE, OTHER, SELFPAY ==
[2021-01-05 07:38] LABS: Fecal Immunochemical Test Negative (Negative)
== END ==
PROVIDERS: PCP Family Medicine; Referring Provider Family Medicine; Visit Provider Family Medicine
DX: Z12.11 Encounter for screening for malignant neoplasm of colon (principal)
CPT/HCPCS: 82274

== ENCOUNTER → 2021-02-27 13:38 | Outpatient (CLI) | payer MEDICARE, OTHER, SELFPAY | PROVIDERS: PCP Family Medicine; Referring Provider Physician Assistant; Visit Provider Physician Assistant | DX: R30.0 Dysuria (principal); R39.15 Urgency of urination | CPT/HCPCS: 87077; 87086; 87186 ==

== ENCOUNTER → 2021-04-27 14:56 | Outpatient (CLI) | payer MEDICARE, OTHER, SELFPAY ==
--- NOTE | 2021-04-27 14:58 | DI.MG.S_ITS ---
BILATERAL DIGITAL SCREENING MAMMOGRAM 3D/2D WITH CAD: 04/27/2021 CLINICAL: Routine screening. Comparison is made to exams dated: 07/24/2018 mammogram and 04/20/2010 mammogram - [facility]. The tissue of both breasts is heterogeneously dense. This may lower the sensitivity of mammography. Current study was also evaluated with a Computer Aided Detection (CAD) system. There are grouped fine calcifications in the left breast at 9 o'clock middle depth. These are more prominent. No other significant masses, calcifications, or other findings are seen in either breast. IMPRESSION: INCOMPLETE: NEEDS ADDITIONAL IMAGING EVALUATION The grouped fine calcifications in the left breast are indeterminate. Additional views are recommended. This exam was interpreted at Station ID: [id number]. NOTE: For mammograms, a report in lay terms will be sent to the patient. Approximately 15% of breast malignancies will not be visualized mammographically. In the management of a palpable breast mass, a negative mammogram must not discourage biopsy of a clinically suspicious lesion. Electronically Signed By: Renny Laguerre M.D. [facility] [place]/:04/27/2021 15:29:26 letter sent: Additional Imaging Needed ACR BI-RADS Category 0: Incomplete [id number]
== END ==
PROVIDERS: PCP Family Medicine; Referring Provider Family Medicine; Visit Provider Family Medicine
DX: Z12.31 Encounter for screening mammogram for malignant neoplasm of breast (principal)
CPT/HCPCS: 77063; 77067

== ENCOUNTER → 2021-05-19 13:27 | Outpatient (CLI) | payer MEDICARE, OTHER, SELFPAY ==
--- NOTE | 2021-05-19 | DI.MG.S_ITS ---
UNILATERAL LEFT DIGITAL DIAGNOSTIC MAMMOGRAM 3D/2D WITH ADDITIONAL VIEWS: 05/19/2021 CLINICAL: Additional evaluation requested from prior study. Comparison is made to exams dated: 04/27/2021 mammogram, 07/24/2018 mammogram, and 04/20/2010 mammogram - [facility]. The tissue of left breast is heterogeneously dense. This may lower the sensitivity of mammography. There are grouped fine calcifications in the left breast at 9 o'clock middle depth are only seen on the CC view. No other significant masses or calcifications are seen in the breast. IMPRESSION: PROBABLY BENIGN The grouped fine calcifications in the left breast are probably benign and only seen on one view. A follow-up mammogram in 6 months is recommended. A follow-up mammogram in 6 months is recommended to demonstrate stability. This exam was interpreted at Station ID: [id number]. NOTE: For mammograms, a report in lay terms will be sent to the patient. Approximately 15% of breast malignancies will not be visualized mammographically. In the management of a palpable breast mass, a negative mammogram must not discourage biopsy of a clinically suspicious lesion. Electronically Signed By: Major Davis acr/:05/19/2021 14:09:10 letter sent: Followup Recommended ACR BI-RADS Category 3: Probably benign [id number]
== END ==
PROVIDERS: PCP Family Medicine; Referring Provider Family Medicine; Visit Provider Family Medicine
DX: R92.8 Other abnormal and inconclusive findings on diagnostic imaging of breast (principal); R92.1 Mammographic calcification found on diagnostic imaging of breast
CPT/HCPCS: 77065; G0279

== ENCOUNTER → 2021-07-22 11:33 | Outpatient (CLI) | payer MEDICARE, OTHER, SELFPAY ==
[2021-07-22 13:46] LABS: Alanine Aminotransferase 25 IU/L (<35); Albumin 4.4 g/dL (3.5-5.0); Albumin Globulin Ratio 1.3 (1.0-2.8); Alkaline Phosphatase 61 U/L (38-126); Aspartate Aminotransferase 42 IU/L (14-36); BUN Creatinine Ratio 14.3 (6-22); Bilirubin Total 0.9 mg/dL (0.2-1.3); Blood Urea Nitrogen 10 mg/dL (7-17); Calcium 9.2 mg/dL (8.4-10.2); Carbon Dioxide 31 mmol/L (22-32); Chloride 100 mmol/L (98-107); Cholesterol 167 mg/dL (140-199); Estimated Glomerular Filt Rate > 60.0 mL/min (>60); Globulin 3.5 g/dL (1.7-4.1); Glucose 93 mg/dL (80-110); HDL Cholesterol 64 mg/dL (40-60); HEMOLYSIS < 15 (0-50); LDL Cholesterol Calculated 86 mg/dL (<100); Potassium 4.1 mmol/L (3.4-5.1); Sodium 139 mmol/L (137-145); Total Protein 7.9 g/dL (6.3-8.2); Triglycerides 83 mg/dL (35-150)
== END ==
PROVIDERS: PCP Family Medicine; Referring Provider Internal Medicine Cardiovascular Disease; Visit Provider Internal Medicine Cardiovascular Disease
DX: E78.5 Hyperlipidemia, unspecified (principal)
CPT/HCPCS: 36415; 80053; 80061

== ENCOUNTER → 2021-12-01 12:09 | Outpatient (CLI) | payer MEDICARE, OTHER, SELFPAY ==
--- NOTE | 2021-12-01 | DI.MG.S_ITS ---
UNILATERAL LEFT DIGITAL DIAGNOSTIC MAMMOGRAM 3D/2D SHORT-TERM FOLLOW-UP: 12/01/2021 CLINICAL: Short term follow up for the left breast. Comparison is made to exams dated: 05/19/2021 mammogram, 04/27/2021 mammogram, and 07/24/2018 mammogram - [facility]. The tissue of left breast is heterogeneously dense. This may lower the sensitivity of mammography. There are grouped fine calcifications in the left breast at 10 o'clock middle depth. These are not significantly changed. No other significant masses or calcifications are seen in the breast. IMPRESSION: PROBABLY BENIGN The grouped fine calcifications in the left breast are probably benign. A follow-up mammogram in 6 months is recommended to demonstrate stability. This exam was interpreted at Station ID: [id number]. NOTE: For mammograms, a report in lay terms will be sent to the patient. Approximately 15% of breast malignancies will not be visualized mammographically. In the management of a palpable breast mass, a negative mammogram must not discourage biopsy of a clinically suspicious lesion. Electronically Signed By: Adam park/trell:12/01/2021 12:52:09 letter sent: Followup Recommended ACR BI-RADS Category 3: Probably benign [id number]
== END ==
PROVIDERS: PCP Family Medicine; Referring Provider Family Medicine; Visit Provider Family Medicine
DX: R92.8 Other abnormal and inconclusive findings on diagnostic imaging of breast (principal); R92.1 Mammographic calcification found on diagnostic imaging of breast
CPT/HCPCS: 77065; G0279

== ENCOUNTER → 2021-12-22 09:40 | Outpatient (CLI) | payer MEDICARE, OTHER, SELFPAY ==
[2021-12-22 10:16] LABS: Appearance Urine UA CLOUDY; Bilirubin Urine UA NEGATIVE (NEGATIVE); Color Urine UA YELLOW; Glucose Urine UA NEGATIVE (Negative); Ketones Urine UA TRACE (NEGATIVE); Leukocyte Esterase Urine UA 3+ (NEGATIVE); Nitrite Urine UA NEGATIVE (Negative); Occult Blood Urine UA 3+ (Negative); Protein Urine UA 1+ (Negative); Urobilinogen Urine UA 0.2 E.U./dL (0.2)
[2021-12-22 10:22] LABS: RBC Urine 30-100/HPF (0-5/HPF)
[2021-12-22 10:23] LABS: Bacteria Urine None Seen; Culture Indicated Urine Specimen Cultured; Squamous Epithelial Cell Urine 1-5 /HPF (0-5/HPF); WBC Urine 30-100/HPF (0-5/HPF)
== END ==
PROVIDERS: PCP Family Medicine; Referring Provider Family Medicine; Visit Provider Family Medicine
DX: N30.00 Acute cystitis without hematuria (principal)
CPT/HCPCS: 81001; 87077; 87086; 87186

== ENCOUNTER → 2022-02-02 13:22 | Outpatient (CLI) | payer MEDICARE, OTHER, SELFPAY ==
[2022-02-02 15:53] LABS: Blood Urea Nitrogen 13 mg/dL (7-17); Calcium 8.9 mg/dL (8.4-10.2); Carbon Dioxide 31 mmol/L (22-32); Chloride 100 mmol/L (98-107); Estimated Glomerular Filt Rate > 60 mL/min (>60); Glucose 143 mg/dL (80-110); HEMOLYSIS < 15 (0-50); Potassium 3.9 mmol/L (3.4-5.1); Sodium 140 mmol/L (137-145)
== END ==
PROVIDERS: PCP Family Medicine; Referring Provider Family Medicine; Visit Provider Family Medicine
DX: M81.0 Age-related osteoporosis without current pathological fracture (principal); Z51.81 Encounter for therapeutic drug level monitoring; Z79.83 Long term (current) use of bisphosphonates
CPT/HCPCS: 36415; 80048

== ENCOUNTER → 2022-02-03 12:09 | Outpatient (CLI) | payer MEDICARE, OTHER, SELFPAY ==
[2022-02-03 19:08] LABS: Vitamin D 25 Hydroxy (D3) 58.5 ng/mL (30.0-100.0)
[2022-02-04 11:37] LABS: Fecal Immunochemical Test Negative (Negative)
== END ==
PROVIDERS: Family Medicine; PCP Family Medicine; Referring Provider Physician Assistant; Visit Provider Physician Assistant
DX: M81.0 Age-related osteoporosis without current pathological fracture (principal); Z12.11 Encounter for screening for malignant neoplasm of colon; Z01.812 Encounter for preprocedural laboratory examination
CPT/HCPCS: 82274; 82306

== ENCOUNTER → 2022-06-02 13:28 | Outpatient (CLI) | payer MEDICARE, OTHER, SELFPAY ==
--- NOTE | 2022-06-02 13:28 | DI.MG.S_ITS ---
BILATERAL DIGITAL DIAGNOSTIC MAMMOGRAM 3D/2D: 06/02/2022 CLINICAL: Short term follow up of the left breast, due for bilateral imaging. Comparison is made to exams dated: 04/27/2021 mammogram, 05/19/2021 mammogram, and 12/01/2021 mammogram - [facility]. Both breasts are heterogeneously dense, which may obscure small masses (category c / 51-75% glandular tissue). There are benign grouped fine calcifications in the left breast at 10 o'clock middle depth. These are less prominent. No other significant masses, calcifications, or other findings are seen in either breast. IMPRESSION: BENIGN There is no mammographic evidence of malignancy. A 1 year screening mammogram is recommended. Based on the Tyrer Cuzick model (a risk assessment model) the patient's lifetime risk is 6.7% and her 10 year risk is 6.7%. According to the ACR, ACS, and NCCN guidelines, an annual breast MRI exam along with mammogram is recommended if the patient's lifetime risk is 20% or greater. This exam was interpreted at Station ID: [id number]. NOTE: For mammograms, a report in lay terms will be sent to the patient. Approximately 15% of breast malignancies will not be visualized mammographically. In the management of a palpable breast mass, a negative mammogram must not discourage biopsy of a clinically suspicious lesion. Electronically Signed By: Sumit Cornelius M.D., jr/trell:06/02/2022 13:53:23 letter sent: Normal Exam ACR BI-RADS Category 2: Benign Finding(s) 3342F
== END ==
PROVIDERS: PCP Family Medicine; Referring Provider Family Medicine; Visit Provider Family Medicine
DX: R92.1 Mammographic calcification found on diagnostic imaging of breast (principal)
CPT/HCPCS: 77066; G0279

== ENCOUNTER → 2022-06-30 14:31 | Outpatient (CLI) | payer MEDICARE, OTHER, SELFPAY | PROVIDERS: PCP Family Medicine; Referring Provider Family Medicine; Visit Provider Family Medicine | DX: M81.0 Age-related osteoporosis without current pathological fracture (principal); Z78.0 Asymptomatic menopausal state | CPT/HCPCS: 77080 ==

== ENCOUNTER → 2023-02-03 12:08 | Outpatient (CLI) | payer MEDICARE, OTHER, SELFPAY ==
[2023-02-03 13:26] LABS: BUN Creatinine Ratio 21.9 (6-22); Blood Urea Nitrogen 14 mg/dL (7-17); Calcium 8.9 mg/dL (8.4-10.2); Carbon Dioxide 29 mmol/L (22-32); Chloride 102 mmol/L (98-107); Estimated Glomerular Filt Rate > 60 mL/min (>60); Glucose 103 mg/dL (80-110); HEMOLYSIS < 15 (0-50); Potassium 3.8 mmol/L (3.4-5.1); Sodium 139 mmol/L (137-145)
== END ==
PROVIDERS: PCP Family Medicine; Referring Provider Physician Assistant; Visit Provider Physician Assistant
DX: I10 Essential (primary) hypertension (principal); M81.0 Age-related osteoporosis without current pathological fracture
CPT/HCPCS: 36415; 80048

== ENCOUNTER → 2023-06-03 13:44 | Outpatient (CLI) | payer MEDICARE, OTHER, SELFPAY ==
--- NOTE | 2023-06-03 13:46 | DI.MG.S_ITS ---
BILATERAL DIGITAL SCREENING MAMMOGRAM 3D/2D WITH CAD: 06/03/2023 CLINICAL: Routine screening. Comparison is made to exams dated: 06/02/2022 mammogram, 07/24/2018 mammogram, 04/27/2021 mammogram, 12/01/2021 mammogram, and 05/19/[address] - [facility]. Both breasts are heterogeneously dense, which may obscure small masses (category c / 51-75% glandular tissue). Current study was also evaluated with a Computer Aided Detection (CAD) system. No significant masses, calcifications, or other findings are seen in either breast. There has been no significant interval change. IMPRESSION: NEGATIVE There is no mammographic evidence of malignancy. A 1 year screening mammogram is recommended. Based on the Tyrer Cuzick model (a risk assessment model) the patient's lifetime risk is 6.1% and her 10 year risk is 0.0%. According to the ACR, ACS, and NCCN guidelines, an annual breast MRI exam along with mammogram is recommended if the patient's lifetime risk is 20% or greater. This exam was interpreted at Station ID: [id number]. NOTE: For mammograms, a report in lay terms will be sent to the patient. Approximately 15% of breast malignancies will not be visualized mammographically. In the management of a palpable breast mass, a negative mammogram must not discourage biopsy of a clinically suspicious lesion. Electronically Signed By: Bill dunlap/trell:06/03/2023 14:20:32 letter sent: Normal Exam ACR BI-RADS Category 1: Negative [id number]
== END ==
PROVIDERS: PCP Physician Assistant; Referring Provider Physician Assistant; Visit Provider Physician Assistant
DX: Z12.31 Encounter for screening mammogram for malignant neoplasm of breast (principal)
CPT/HCPCS: 77063; 77067

== ENCOUNTER → 2023-10-26 12:39 | Outpatient (CLI) | payer MEDICARE, OTHER, SELFPAY ==
[2023-10-26 15:56] LABS: Alanine Aminotransferase 27 IU/L (<35); Albumin 4.3 g/dL (3.5-5.0); Albumin Globulin Ratio 1.6 (1.0-2.8); Alkaline Phosphatase 63 U/L (38-126); Aspartate Aminotransferase 42 IU/L (14-36); BUN Creatinine Ratio 26.1 (6-22); Bilirubin Total 0.8 mg/dL (0.2-1.3); Blood Urea Nitrogen 18 mg/dL (7-17); Calcium 9.4 mg/dL (8.4-10.2); Carbon Dioxide 31 mmol/L (22-32); Chloride 105 mmol/L (98-107); Cholesterol 165 mg/dL (140-199); Estimated Glomerular Filt Rate > 60 mL/min (>60); Globulin 2.7 g/dL (1.7-4.1); Glucose 98 mg/dL (80-110); HDL Cholesterol 61 mg/dL (40-60); HEMOLYSIS < 15 (0-50); LDL Cholesterol Calculated 90 mg/dL (<100); Magnesium 1.8 mg/dL (1.6-2.3); Potassium 4.1 mmol/L (3.4-5.1); Sodium 140 mmol/L (137-145); Triglycerides 71 mg/dL (35-150)
[2023-10-26 17:12] LABS: Thyroid Stimulating Hormone 1.99 uIU/mL (0.47-4.68)
== END ==
PROVIDERS: PCP Family Medicine; Referring Provider Internal Medicine Cardiovascular Disease; Visit Provider Internal Medicine Cardiovascular Disease
DX: I10 Essential (primary) hypertension (principal); E78.5 Hyperlipidemia, unspecified
CPT/HCPCS: 36415; 80053; 80061; 83735; 84443

== ENCOUNTER → 2024-01-14 13:46 | Outpatient (CLI) | payer MEDICARE, OTHER, SELFPAY ==
--- NOTE | 2024-01-14 13:50 | DI.ECHO.S_ITS ---
[facility] : : [address] : : [place] : : [id number] : : Phone: [phone] Echocardiogram Report + + :Name: KIMI OWENS Study Date: 01/14/2024 Height: 65 in : :[facility] ReadingLocation: Weight: 130 lb : : Gender: Female BSA: 1.6 m2 : :: 1945 Age: 78 yrs BP: 169/90 mmHg: :Reason For Study: MURMUR : :Ordering Physician: ESTEBAN, : :ERIC Performed By: Sumit Roman : :Referring: ERIC ORELLANA : + + Interpretation Summary The left ventricle is normal in size and wall thickness. The left ventricular ejection fraction is normal. The ejection fraction is estimated to be 55-60%. The right ventricle is normal size. The right ventricular systolic function is normal. No significant valvular pathology seen. The IVC is of normal diameter and collapses greater than 50% with a sniff. This suggests a low right atrial pressure of 3 mm Hg. Procedure: A two-dimensional transthoracic echocardiogram with color flow and Doppler was performed. The study quality was technically adequate. Most of the acoustic windows were suboptimal, but the best imaging was obtained from the subcostal window. The heart rate ranged between 53-67 bpm during the study. The patient had occasional PVCs during the exam. The patient was in normal sinus rhythm during the exam. Left Ventricle: The left ventricle is normal in size and wall thickness. There is no thrombus. The ejection fraction is estimated to be 55-60%. The left ventricular ejection fraction is normal. There are no focal wall motion abnormalities. Diastolic parameters suggest a relaxation abnormality of the left ventricle, consistent with probable normal filling pressures. Right Ventricle: The right ventricle is normal size. The right ventricular systolic function is normal. Atria: The left atrial size is normal. Right atrial size is normal. The interatrial septum grossly appears intact with no obvious evidence for an atrial septal defect. Mitral Valve: The mitral valve leaflets appear borderline thickened, but open well. The mitral valve leaflets are slightly calcified. There is no mitral valve stenosis. There is trace mitral regurgitation. Aortic Valve: The aortic valve is trileaflet. The aortic valve opens well. There is no aortic valve stenosis. No aortic regurgitation is present. Tricuspid Valve: The tricuspid valve is normal. There is no tricuspid stenosis. The right ventricular systolic pressure is estimated to be at least 17.6 mmHg based on an estimated right atrial pressure of 3 mm Hg. There is trace tricuspid regurgitation. Pulmonic Valve: The pulmonic valve is not well visualized. There is no pulmonic valvular stenosis. There is a trace or physiologic amount of pulmonic regurgitation. Great Vessels: The aortic root is normal size. The dimensions of the ascending aorta are normal. The IVC is of normal diameter and collapses greater than 50% with a sniff. This suggests a low right atrial pressure of 3 mm Hg. Pericardium/ Pleura There is no pericardial effusion. There is no pleural effusion. MMode/2D Measurements & Calculations LVIDd: 4.9 cm LVOT diam: 2.0 cm LVIDs: 3.4 cm Ao root diam: 2.9 cm FS: 29.6 % asc Aorta Diam: 3.0 cm IVSd: 0.88 cm Ao Arch Diam (Prox Trans): 2.4 cm LVPWd: 0.75 cm LV atwood. diameter/BSA (cm/m^2): 2.9 LV sys. diameter/BSA (cm/m^2): 2.1 LA A2 area: 15.4 cm2 RA long axis: 4.9 cm LA A4 area: 15.0 cm2 RA area: 14.6 cm2 LA length (vol): 4.2 cm RA vol: 37.0 ml LA vol: 46.8 ml RA : 22.5 ml/m2 LA vol index: 28.4 ml/m2 IVC diam: 1.4 cm RVD1 (basal): 3.3 cm RVD2 (mid): 3.0 cm TAPSE: 2.4 cm Doppler Measurements & Calculations Ao V2 max: 105.0 cm/sec LVOT Max Kwabena: 82.1 cm/sec Ao V2 mean: 72.8 cm/sec LV V1 max P.7 mmHg Ao max P.4 mmHg LV V1 VTI: 20.0 cm Ao mean P.4 mmHg ANA(I,D): 2.6 cm2 Ao V2 VTI: 25.2 cm ANA(V,D): 2.6 cm2 sev ratio: 0.79 ANA indexed to BSA (cm^2/m^2): 1.6 MV E max kwabena: 64.3 cm/sec TR max kwabena: 251.0 cm/sec MV A max kwabena: 98.3 cm/sec TR max P.3 mmHg MV E/A: 0.65 PA V2 max: 78.1 cm/sec Med Peak E' Kwabena: 5.1 cm/sec PA V2 mean: 54.2 cm/sec E/E' med: 12.5 PA mean P.3 mmHg Lat Peak E' Kwabena: 7.6 cm/sec PA pr(Accel): 27.6 mmHg E/E' lat: 8.4 E/e' average: 10.5 MV dec time: 0.17 sec SV(LVOT): 65.2 ml Reading Physician:04:09 PM
== END ==
PROVIDERS: PCP Family Medicine; Referring Provider Internal Medicine Cardiovascular Disease; Visit Provider Internal Medicine Cardiovascular Disease
DX: R01.1 Cardiac murmur, unspecified (principal)
CPT/HCPCS: 93306

== ENCOUNTER → 2024-02-14 13:40 | Outpatient (CLI) | payer MEDICARE, OTHER, SELFPAY ==
[2024-02-14 14:31] LABS: BUN Creatinine Ratio 16.9 (6-22); Blood Urea Nitrogen 13 mg/dL (7-17); Calcium 8.9 mg/dL (8.4-10.2); Carbon Dioxide 29 mmol/L (22-32); Chloride 102 mmol/L (98-107); Estimated Glomerular Filt Rate > 60 mL/min (>60); Glucose 197 mg/dL (80-110); HEMOLYSIS < 15 (0-50); Potassium 3.8 mmol/L (3.4-5.1); Sodium 139 mmol/L (137-145)
== END ==
PROVIDERS: PCP Family Medicine; Referring Provider Family Medicine; Visit Provider Family Medicine
DX: M81.0 Age-related osteoporosis without current pathological fracture (principal)
CPT/HCPCS: 36415; 80048

== ENCOUNTER → 2024-09-21 12:19 | Outpatient (CLI) | payer MEDICARE, OTHER, SELFPAY ==
[2024-09-21 13:04] LABS: Add Manual Diff / Slide Review NO; Basophils Absolute Auto 0 /uL (0-100); Basophils Percent Auto 0.8 % (0-2); Eosinophils Absolute Auto 100 /uL (0-450); Hemoglobin 12.6 g/dL (12.0-16.0); Lymphocytes Absolute Auto 800 /uL (1100-4500); Lymphocytes Percent Auto 13.8 % (25-40); Mean Corpuscular HGB Conc 33.1 % (30-36); Mean Corpuscular Hemoglobin 31.3 PG (26-34); Mean Corpuscular Volume 94.8 fL (80-100); Monocytes Absolute Auto 500 /uL (0-900); Monocytes Percent Auto 8.9 % (3-14); Neutrophils Absolute Auto 4500 /uL (1500-7000); Neutrophils Percent Auto 75.5 % (50-75); Platelet Count 240 X10^3/uL (150-400); Red Cell Distribution Width 13.5 % (11.6-14.8)
[2024-09-21 13:37] LABS: Alanine Aminotransferase 23 IU/L (<35); Albumin 4.8 g/dL (3.5-5.0); Albumin Globulin Ratio 2.1 (1.0-2.8); Alkaline Phosphatase 63 U/L (38-126); Aspartate Aminotransferase 39 IU/L (14-36); BUN Creatinine Ratio 11.1 (6-22); Bilirubin Total 1.1 mg/dL (0.2-1.3); Blood Urea Nitrogen 9 mg/dL (7-17); Calcium 9.6 mg/dL (8.4-10.2); Carbon Dioxide 27 mmol/L (22-32); Chloride 102 mmol/L (98-107); Cholesterol 201 mg/dL (140-199); Estimated Glomerular Filt Rate > 60 mL/min (>60); Globulin 2.3 g/dL (1.7-4.1); Glucose 128 mg/dL (80-110); HDL Cholesterol 76 mg/dL (40-60); HEMOLYSIS < 15 (0-50); LDL Cholesterol Calculated 104 mg/dL (<100); Potassium 3.7 mmol/L (3.4-5.1); Sodium 138 mmol/L (137-145); Total Protein 7.1 g/dL (6.3-8.2); Triglycerides 107 mg/dL (35-150)
== END ==
PROVIDERS: PCP Family Medicine; Referring Provider Family Medicine; Visit Provider Family Medicine
DX: R00.2 Palpitations (principal); I10 Essential (primary) hypertension
CPT/HCPCS: 36415; 80053; 80061; 85025

== ENCOUNTER → 2024-10-08 14:33 | Outpatient (CLI) | payer MEDICARE, OTHER, SELFPAY ==
[2024-10-08 15:40] LABS: Add Manual Diff / Slide Review NO; Basophils Absolute Auto 100 /uL (0-100); Basophils Percent Auto 0.9 % (0-2); Eosinophils Absolute Auto 0 /uL (0-450); Eosinophils Percent Auto 0.7 % (2-4); Hemoglobin 11.9 g/dL (12.0-16.0); Lymphocytes Absolute Auto 800 /uL (1100-4500); Lymphocytes Percent Auto 13.2 % (25-40); Mean Corpuscular HGB Conc 34.1 % (30-36); Mean Corpuscular Hemoglobin 31.9 PG (26-34); Mean Corpuscular Volume 93.5 fL (80-100); Monocytes Absolute Auto 600 /uL (0-900); Monocytes Percent Auto 9.8 % (3-14); Neutrophils Absolute Auto 4500 /uL (1500-7000); Neutrophils Percent Auto 75.4 % (50-75); Platelet Count 259 X10^3/uL (150-400); Red Blood Cell Count 3.74 X10^6/uL (4.0-5.2); Red Cell Distribution Width 13.1 % (11.6-14.8); White Blood Cell Count 5.9 X10^3/uL (4.5-11.0)
[2024-10-08 16:03] LABS: Hemoglobin A1C% w Est Avg Glu 5.5 % (4.0-6.0)
[2024-10-08 16:04] LABS: Alanine Aminotransferase 21 IU/L (<35); Albumin 4.6 g/dL (3.5-5.0); Albumin Globulin Ratio 2.3 (1.0-2.8); Alkaline Phosphatase 58 U/L (38-126); Aspartate Aminotransferase 36 IU/L (14-36); BUN Creatinine Ratio 10.8 (6-22); Bilirubin Total 0.8 mg/dL (0.2-1.3); Blood Urea Nitrogen 8 mg/dL (7-17); Calcium 9.7 mg/dL (8.4-10.2); Carbon Dioxide 29 mmol/L (22-32); Chloride 100 mmol/L (98-107); Cholesterol 177 mg/dL (140-199); Estimated Glomerular Filt Rate > 60 mL/min (>60); Glucose 120 mg/dL (80-110); HDL Cholesterol 67 mg/dL (40-60); HEMOLYSIS < 15 (0-50); LDL Cholesterol Calculated 91 mg/dL (<100); Potassium 4.1 mmol/L (3.4-5.1); Sodium 138 mmol/L (137-145); Total Protein 6.6 g/dL (6.3-8.2); Triglycerides 93 mg/dL (35-150)
== END ==
LOC: LAB 14:34
PROVIDERS: PCP Family Medicine; Referring Provider Internal Medicine Cardiovascular Disease; Visit Provider Internal Medicine Cardiovascular Disease
DX: Z00.00 Encounter for general adult medical examination without abnormal findings (principal); R73.09 Other abnormal glucose; I10 Essential (primary) hypertension; R00.2 Palpitations; E78.5 Hyperlipidemia, unspecified
CPT/HCPCS: 36415; 80053; 80061; 83036; 85025

== ENCOUNTER → 2025-03-07 15:03 | Outpatient (CLI) | payer MEDICARE, OTHER, SELFPAY ==
[2025-03-07 15:44] LABS: Blood Urea Nitrogen 9 mg/dL (7-17); Calcium 9.2 mg/dL (8.4-10.2); Carbon Dioxide 28 mmol/L (22-32); Chloride 98 mmol/L (98-107); Estimated Glomerular Filt Rate > 60 mL/min (>60); Glucose 192 mg/dL (70-99); HEMOLYSIS < 15 (0-50); Potassium 3.9 mmol/L (3.4-5.1); Sodium 136 mmol/L (137-145)
== END ==
PROVIDERS: PCP Family Medicine; Referring Provider Family Medicine; Visit Provider Family Medicine
DX: Z51.81 Encounter for therapeutic drug level monitoring (principal); M81.0 Age-related osteoporosis without current pathological fracture
CPT/HCPCS: 80048